=== PATIENT | female | born 1955 | race Caucasian/White ===

== ENCOUNTER → 2023-07-06 13:02 | Outpatient (REF) | payer MEDICARE, OTHER, SELFPAY | LOC: RAD 13:02 | PROVIDERS: ATTENDING PHYSICIAN Surgery Vascular Surgery | DX: I77.9 Disorder of arteries and arterioles, unspecified (principal) | CPT/HCPCS: 93922; 93925 ==

== ENCOUNTER 2023-12-13 22:52 | Inpatient (IN) | payer MEDICARE, OTHER, SELFPAY ==
[2023-12-13 19:33] VITALS: BMI 39.8
[2023-12-13 19:36] VITALS: BP 137/54
--- NOTE | 2023-12-13 19:42 | ED.GENMED ---
History of Present Illness
<Herminia Meléndez NP - Last Filed: 12/13/23 21:39>
General
Chief Complaint: Cough
Source: patient, ambulance crew and [facility]
Exam Limitations: none
Time Seen by Provider: 12/13/23 19:32
Nursing documentation reviewed up to this point in time: agreed with
History of Present Illness
History of Present Illness:
Patient to ED with complaint of fever, cough, SOB, low pulse ox. Temp of 102 reported by NH. Brought to ED via EMS for eval
Past History
<Herminia Mleéndez NP - Last Filed: 12/13/23 21:39>
Past History
ED Past Medical History: Asthma, GERD, HTN, Hypercholesterolemia, IDDM and Other (rhabdo, peripheral arterial disease, left heel osteomyelitis, pelvic abscess)
ED Past Surgical History: Other (Vascular)
Social History
Tobacco: Former smoker
Alcohol: None
Drug: None
Personal:
Living: [facility]
Employment: Disabled
Review of Systems
<Herminia Meléndez NP - Last Filed: 12/13/23 21:39>
Review of Systems
Allergies reviewed?: Yes
All Other Systems: ROS reviewed and negative except as documented in HPI and ROS
Constitutional: Reports fever and fatigue
EENT: Reports no symptoms
Respiratory: Reports cough and trouble breathing
Cardiac: Reports no symptoms
ABD/GI: Reports no symptoms
: Reports no symptoms
Musculoskeletal: Reports no symptoms
Skin: Reports no symptoms
Neurological: Reports weakness
Psychiatric: Reports no symptoms
Phy Exam
<Herminia Meléndez NP - Last Filed: 12/13/23 21:39>
General Physical Exam
General Presentation: moderate distress
General age: appears stated age
General Skin: warm and dry
General Habitus: normal
General Mental: alert
Cardiovascular Exam
Cardiovascular Exam: regular rate/rhythm
Pulmonary Exam
Pulmonary Exam: chest non tender and decreased breath sounds
Cough: coarse cough
Breath Sounds: Wheeze: generalized (expiratory)
Gastrointestinal Exam
Gastrointestinal Exam: normal bowel sounds, non tender, soft and no organomegaly
Musculoskeletal Exam
Musculoskeletal Exam: neuro vasc intact
Skin Exam
Skin Exam: normal color, warm/dry and no rash
Psychiatric Exam
Psychiatric Exam: normal mood/affect
Course
<Herminia Meléndez NP - Last Filed: 12/13/23 21:39>
Orders/Labs/Results
Orders:
Orders
12/13/23 19:33
Electrocardiogram (*1) Urgent
Reason for Study: Other
Other Reason for Exam: Possible Sepsis
Cardiac Monitoring- Treatment ONCE
EKG- Treatment ONCE
IV Insert/Care/Rem.- Treatment PRN
Straight cath- Treatment ONCE
CR Chest - 2 Views Urgent
Comment:
Reason For Exam: suspected infection
O2 Therapy [RESP] Urgent
Titrate/Wean O2 to maintain O2 sat greater than (%): 93
Special Instructions: TO MAINTAIN CONTINUOUS O2 SATS > OR = 93%
Pulse Ox/cont/shift [RESP] Urgent
Quantity: 1
Special Instructions: CONTINUOUS
12/13/23 19:51
Ipratropium/Albuterol Sulfate [Duoneb] 3 ml INH R NOW STA
12/13/23 20:01
Urinalysis Reflex To Culture Urgent
Date Specimen was Collected: 12/13/23
Time Specimen was Collected: 19:33
Urine Microscopic Reflex Cult Urgent
Urine Culture Urgent
JEANNETTE Source: U
Specimen Description:
Date Specimen was Collected: 12/13/23
Time Specimen was Collected: 19:33
Acetaminophen [Tylenol] 1,000 mg PO NOW STA
Dexamethasone Sod Phosphate [Decadron] 10 mg IV NOW STA
12/13/23 20:07
COVID-19 Antigen Urgent
Source: Nasal Swab
Complete Blood Count/With Diff Urgent
Comprehensive Metabolic Panel Urgent
Lactic Acid Q4H
Comment: ON ICE, CANCEL 2ND ORDER IF FIRST LACTIC ACID LEVEL <2
Blood Culture Urgent
JEANNETTE Source: Blood/Venous
Specimen Description:
12/13/23 21:35
Piperacillin/Tazo 3.375 Gram [Zosyn] 3.375 gram in 50 ml IV NOW
Abnormal Lab Results
12/13/23 12/13/23
20:01 20:07
WBC 15.4 H 10^3/uL
(4.8-10.8)
Hgb 11.2 L g/dL
(12.0-16.0)
Hct 34.0 L %
(37.0-47.0)
MCV 77.8 L fL
(81.0-99.0)
MCH 25.6 L pg
(27.0-31.0)
MCHC 32.9 L g/dL
(33.0-37.0)
RDW 15.1 H %
(11.5-14.5)
Abs Immat Gran (auto) 0.1 H 10^3/uL
(0-0.05)
Absolute Neuts (auto) 13.8 H 10^3/uL
(1.4-6.5)
Absolute Lymphs (auto) 0.7 L 10^3/uL
(1.2-3.4)
Immature Gran % 0.7 H %
(0-0.5)
Neutrophils % 89.8 H %
(42.2-75.2)
Lymphocytes % 4.7 L %
(20.5-51.1)
Carbon Dioxide 21 L mmol/L
(22-30)
BUN 25 H mg/dl
(7-17)
Creatinine 1.3 H mg/dL
(0.6-1.0)
Glucose 151 H mg/dl
(70-99)
Ur Occult Blood Reflex Trace A
(Negative)
Urine Nitrite (Reflex) Positive A
(Negative)
Leukocyte Esterase Rfl 2+ A
(Negative)
Urine RBC 3-6 A /HPF
(0-2)
Urine WBC (Reflex) 30-40 A /HPF
(0-5)
Urine Bacteria (Reflex) Many A
(Negative)
Urine Albumin (Reflex) 1+ A
(Neg - Trace)
12/13/23 20:07
12/13/23 20:07
Vital Signs
Initial and Last Documented VS:
Initial Vital Signs
Temp Pulse Resp Pulse Ox
100.2 F 109 26 95
12/13/23 19:33 12/13/23 19:33 12/13/23 19:33 12/13/23 19:33
Last Documented Vital Signs
Temp Pulse Resp BP Pulse Ox
103 F H 98 21 127/97 99
12/13/23 19:54 12/13/23 20:30 12/13/23 19:45 12/13/23 20:00 12/13/23 20:30
<Erwin Navas, DO - Last Filed: 12/13/23 21:36>
Orders/Labs/Results
Orders:
Orders
12/13/23 19:33
Electrocardiogram (*1) Urgent
Reason for Study: Other
Other Reason for Exam: Possible Sepsis
Cardiac Monitoring- Treatment ONCE
EKG- Treatment ONCE
IV Insert/Care/Rem.- Treatment PRN
Straight cath- Treatment ONCE
CR Chest - 2 Views Urgent
Comment:
Reason For Exam: suspected infection
O2 Therapy [RESP] Urgent
Titrate/Wean O2 to maintain O2 sat greater than (%): 93
Special Instructions: TO MAINTAIN CONTINUOUS O2 SATS > OR = 93%
Pulse Ox/cont/shift [RESP] Urgent
Quantity: 1
Special Instructions: CONTINUOUS
12/13/23 19:51
Ipratropium/Albuterol Sulfate [Duoneb] 3 ml INH R NOW STA
12/13/23 20:01
Urinalysis Reflex To Culture Urgent
Date Specimen was Collected: 12/13/23
Time Specimen was Collected: 19:33
Urine Microscopic Reflex Cult Urgent
Urine Culture Urgent
JEANNETTE Source: U
Specimen Description:
Date Specimen was Collected: 12/13/23
Time Specimen was Collected: 19:33
Acetaminophen [Tylenol] 1,000 mg PO NOW STA
Dexamethasone Sod Phosphate [Decadron] 10 mg IV NOW STA
12/13/23 20:07
COVID-19 Antigen Urgent
Source: Nasal Swab
Complete Blood Count/With Diff Urgent
Comprehensive Metabolic Panel Urgent
Lactic Acid Q4H
Comment: ON ICE, CANCEL 2ND ORDER IF FIRST LACTIC ACID LEVEL <2
Blood Culture Urgent
JEANNETTE Source: Blood/Venous
Specimen Description:
12/13/23 21:35
Piperacillin/Tazo 3.375 Gram [Zosyn] 3.375 gram in 50 ml IV NOW
Abnormal Lab Results
12/13/23 12/13/23
20:01 20:07
WBC 15.4 H 10^3/uL
(4.8-10.8)
Hgb 11.2 L g/dL
(12.0-16.0)
Hct 34.0 L %
(37.0-47.0)
MCV 77.8 L fL
(81.0-99.0)
MCH 25.6 L pg
(27.0-31.0)
MCHC 32.9 L g/dL
(33.0-37.0)
RDW 15.1 H %
(11.5-14.5)
Abs Immat Gran (auto) 0.1 H 10^3/uL
(0-0.05)
Absolute Neuts (auto) 13.8 H 10^3/uL
(1.4-6.5)
Absolute Lymphs (auto) 0.7 L 10^3/uL
(1.2-3.4)
Immature Gran % 0.7 H %
(0-0.5)
Neutrophils % 89.8 H %
(42.2-75.2)
Lymphocytes % 4.7 L %
(20.5-51.1)
Carbon Dioxide 21 L mmol/L
(22-30)
BUN 25 H mg/dl
(7-17)
Creatinine 1.3 H mg/dL
(0.6-1.0)
Glucose 151 H mg/dl
(70-99)
Ur Occult Blood Reflex Trace A
(Negative)
Urine Nitrite (Reflex) Positive A
(Negative)
Leukocyte Esterase Rfl 2+ A
(Negative)
Urine RBC 3-6 A /HPF
(0-2)
Urine WBC (Reflex) 30-40 A /HPF
(0-5)
Urine Bacteria (Reflex) Many A
(Negative)
Urine Albumin (Reflex) 1+ A
(Neg - Trace)
12/13/23 20:07
12/13/23 20:07
Vital Signs
Initial and Last Documented VS:
Initial Vital Signs
Temp Pulse Resp Pulse Ox
100.2 F 109 26 95
12/13/23 19:33 12/13/23 19:33 12/13/23 19:33 12/13/23 19:33
Last Documented Vital Signs
Temp Pulse Resp BP Pulse Ox
103 F H 98 21 127/97 99
12/13/23 19:54 12/13/23 20:30 12/13/23 19:45 12/13/23 20:00 12/13/23 20:30
<Herminia Meléndez NP - Last Filed: 12/13/23 21:39>
*Radiology
Radiology exam reviewed: radiology read reviewed
*Pulse Oximetry
Patient hypoxic: yes
*Critical Care Note
Total Time (30-74mins, 75-104mins- exclusive of procedures): Not Applicable
ED Attending Note
<Herminia Meléndez NP - Last Filed: 12/13/23 21:39>
-
Portions of this chart may have been created with voice recognition software.� Occasional wrong word or��sound alike� substitutions may have occurred due to the inherent limitations of voice recognition software.
<Erwin Navas DO - Last Filed: 12/13/23 21:36>
ED Attending Note
Patient seen and examined by attending physician: Yes
I performed the substantive portion of visit, reviewed & personally made and approve the management plan that is documented in note by myself or EMILY.: Yes
ED Attending Note:
Seen with [employer] examined independently cough fever looks like pneumonia and urinary tract infection plan will be antibiotics nebs fluids Tylenol admission
Discharge Plan
Departure
Patient Disposition: Admit
Date of Disposition: 12/13/23
Time of Disposition: 21:36
Presentation/result/management discussed w/ accepting MD/DO: Hospitalist
Patient with high blood pressure during this ER visit?: No
Condition: Fair
Covid-19: Not Applicable
Discharge Problem:
Pneumonia, Acute UTI
Prescriptions:
No Action
acetaminophen 325 MG tablet
650 mg PO Q4HPRN PRN (Reason: fever >101/ mild pain)
multivitamin with folic acid [Tab-A-Karrie] 1 TABLET tablet
1 tab PO HS
famotidine 20 MG tablet
20 mg PO DAILY
gabapentin 100 MG capsule
100 mg PO BID
atorvastatin 10 MG tablet
10 mg PO HS
melatonin 5 MG tablet
8 mg PO HS
gabapentin 100 MG capsule
200 mg PO HS
insulin lispro [Humalog KwikPen Insulin] 100 UNIT/ML insulin pen
10 units SC AC
Patient Comments:
hold if bs <110mg/dl
Rx Instructions:
HOLD BG <110
ezetimibe 10 MG tablet
10 mg PO HS
Saline Nasal 50 SPRAYS/45 ML aerosol,spray
2 spray NS BID
aspirin [Ecotrin Low Strength] 81 MG tablet,delayed release (DR/EC)
81 mg PO DAILY Qty: 30 0RF
fexofenadine 180 mg Tablet
180 mg PO DAILY
diphenhydramine HCl [Benadryl] 25 mg Capsule
50 mg PO DAILY
valsartan [Diovan] 40 mg Tablet
40 mg PO DAILY
Patient Comments:
not on medication list from [facility].
Artificial Tears (PF) Dropperette
2 drp OPHTHALMIC (EYE) Q8H
tramadol 50 mg Tablet
25 mg PO BID PRN (Reason: PAIN)
magnesium hydroxide 400 mg/5 mL Suspension
30 ml PO PRN PRN (Reason: No BM 3 days)
albuterol sulfate [ProAir HFA] 90 mcg/actuation Hfa Aerosol Inhaler
2 puff INHALATION DAILY
ipratropium bromide 21 mcg (0.03 %) [place],Non-Aerosol
1 spray INTRANASAL BID
acetaminophen [Tylenol] 325 mg Capsule
650 mg PO DAILY
polyethylene glycol 3350 17 GRAMS powder in packet
17 grams PO Q12 PRN (Reason: constipation)
ascorbic acid (vitamin C) 1,000 mg Tablet
1,000 mg PO DAILY
Aquaphor Ointment
1 applic TOPICAL BID
Rx Instructions:
For dry skin
Fleet Enema 19-7 gram/118 mL Enema
118 ml ME PRN PRN (Reason: if no results after bisacodyl)
Rx Instructions:
If no bowel movement in 24 hours after bisacodyl
epinephrine [EpiPen] 0.3 mg/0.3 mL Auto-Injector
0.3 mg IM Q5-15M PRN (Reason: allergic reaction)
diclofenac sodium 1 % Gel
4 g TOPICAL PRN PRN (Reason: pain)
glucagon 1 mg Kit
1 mg IM PRN PRN (Reason: BS <50)
ketoconazole 2 % Shampoo
1 applic TOPICAL ONCE
loperamide 2 mg Capsule
2 mg PO Q4H PRN (Reason: DIARRHEA)
cetirizine 10 mg Tablet
10 mg PO HS
famotidine 40 mg Tablet
40 mg PO HS
hydroxyzine HCl 50 mg Tablet
50 mg PO Q8H
hydrocortisone 1 % Cream
1 applic TOPICAL BID
esomeprazole magnesium [Nexium] 40 mg Capsule,Delayed Release(Dr/Ec)
40 mg PO DAILY
docusate sodium [Colace] 100 mg Capsule
100 mg PO BID PRN (Reason: constipation)
ammonium lactate 12 % Cream
1 applic TOPICAL HS
midodrine 2.5 mg Tablet
2.5 mg PO BID
Rx Instructions:
HOLD BP >110/60
albuterol sulfate [ProAir HFA] 90 mcg/actuation Hfa Aerosol Inhaler
2 puff INHALATION Q4H PRN (Reason: BRONCHOSPASM)
hydrocortisone 2.5 % Ointment
1 applic TOPICAL BID PRN (Reason: ALLERGIC CONTACT DERMATITIS)
glipizide 5 mg Tablet
5 mg PO 1300
nortriptyline 50 mg Capsule
50 mg PO HS
metoprolol tartrate 25 mg Tablet
12.5 mg PO BID
Rx Instructions:
HOLD SBP <110, HR <60
cranberry 450 mg Tablet
450 mg PO BID
Linzess 290 mcg Capsule
290 mcg PO DAILY
Xarelto 2.5 mg Tablet
2.5 mg PO QPM
brimonidine 0.33 % Gel With Pump
1 applic TOPICAL DAILY
insulin glargine [Lantus U-100 Insulin] 1,000 UNITS/10 ML solution
28 units SC HS
Patient Comments:
Took half dose 01/20
bisacodyl [OneLAX Bisacodyl] 10 MG suppository
10 mg ME DAILYPRN PRN (Reason: no MB 24hrs after MOM)
Rx Instructions:
after 24h no BM
Referrals:
Nora River CRNP [Family Provider] -
Interventions
Interventions:
*Risk Screen - Suicide Last Done: 12/13/23 19:33
*General Assessment Last Done: 12/13/23 19:33
*Neglect/Abuse Screening Last Done: 12/13/23 19:33
*ED COVID-19 Vaccine History Last Done: 12/13/23 19:33
ED- Pulmonary Assessment Last Done: 12/13/23 19:33
Discharge Date and Time
Print Language: URDU
[2023-12-13 20:00] VITALS: BP 127/97
[2023-12-13] MEDS: TYLENOL 1000 MG PO (20:13)
[2023-12-13] MEDS: DECADRON 10 MG IV (20:13)
[2023-12-13] MEDS: DUONEB 3 ML INH (20:14)
[2023-12-13 20:19] LABS: Urine Albumin 1+ (Neg - Trace); Urine Bilirubin Negative (Negative); Urine Character Slightly Cloudy (Clear); Urine Color Yellow; Urine Glucose Negative (Negative); Urine Ketone Negative (Negative); Urine Leukocyte 2+ (Negative); Urine Nitrite Positive (Negative); Urine Occult Blood Trace (Negative); Urine Specific Gravity 1.015 (<1.030); Urine Urobilinogen Negative (Neg - 1+)
[2023-12-13 20:20] LABS: % Basophils 0.4 % (0-2); % Eosinophils 0.6 % (0-6); % Immature Granulocytes 0.7 % (0-0.5); % Lymphocytes 4.7 % (20.5-51.1); % Monocytes 3.8 % (1.7-9.3); % Neutrophils 89.8 % (42.2-75.2); Absolute Basophils 0.1 10^3/uL (0-0.2); Absolute Eosinophils 0.1 10^3/uL (0-0.7); Absolute Immature Granulocytes 0.1 10^3/uL (0-0.05); Absolute Lymphocytes 0.7 10^3/uL (1.2-3.4); Absolute Monocytes 0.6 10^3/uL (0.1-0.6); Absolute Neutrophils 13.8 10^3/uL (1.4-6.5); Hemoglobin 11.2 g/dL (12.0-16.0); Mean Corp Hgb Conc. 32.9 g/dL (33.0-37.0); Mean Corpuscular Hgb 25.6 pg (27.0-31.0); Mean Corpuscular Volume 77.8 fL (81.0-99.0); Nucleated Red Blood Cells % 0 %; Red Blood Cell Count 4.37 10^6/uL (4.20-5.40); Red Cell Dist. Width 15.1 % (11.5-14.5); White Blood Cell Count 15.4 10^3/uL (4.8-10.8)
[2023-12-13 20:28] LABS: Urine Bacteria Many (Negative); Urine White Cell 30-40 /HPF (0-5)
[2023-12-13 20:29] LABS: Lactic Acid 1.2 mmol/L (0.7-2.0)
[2023-12-13 20:40] LABS: Platelet Count 240 10^3/uL (130-400)
[2023-12-13 20:46] LABS: ALT (SGPT) 14 U/L (0-35); AST (SGOT) 28 U/L (14-36); Albumin 3.8 g/dl (3.5-5.0); Alkaline Phosphatase 110 U/L (38-126); Blood Urea Nitrogen 25 mg/dl (7-17); Carbon Dioxide 21 mmol/L (22-30); Chloride 103 mmol/L (98-107); Estimated Creatinine Clearance 51 ml/min; Glucose 151 mg/dl (70-99); Potassium 4.1 mmol/L (3.5-5.1); Sodium 136 mmol/L (135-145); Total Bilirubin 0.8 mg/dl (0.2-1.3); Total Protein 7.2 g/dl (6.3-8.2); eGFR 45.07
[2023-12-13 20:48] LABS: COVID-19 Antigen Negative (Negative)
[2023-12-13 21:18] VITALS: BP 143/80
[2023-12-13 22:09] VITALS: BP 126/68
[2023-12-13] MEDS: ZOSYN 50 IV (22:09)
--- NOTE | 2023-12-13 22:16 | HPS.HSE ---
Addendum entered and electronically signed by Valeriy Robles MD 12/14/23 13:24:
Laboratory Tests
12/13/23 12/13/23
20:07 22:12
Creatinine 1.3 H
Estimated Creat Clear 51
Procalcitonin 0.92 H
Original Note:
Family Physician
-
Family Physician: PETE Gunn
Chief Complaint
-
[place] fever at [place]
History of Present Illness
HPI
68G [facility] [place], HX ESBL POS UTI, IDDM, diabetic neuropathy sent to ER for evaluation of spiked fever to 102.
Acute febrile episode with T 102 at [place]
- T max at ER 103
- mildly tachypneic but not labored breathing
- POx 95% on NRM
- POS productive cough
- BCx sent at ER
- initiated Zosyn, Decadron and Nebs
Medical History
Past Medical History
Past Medical History: Reports Other
Additional Past Medical History:
PAD status post left lower extremity bypass.
Chronic foot wound on the left heel with osteomyelitis.
Anticoagulation with Xarelto secondary to peripheral artery disease.
Insulin-requiring diabetes.
Diabetic neuropathy.
Essential hypertension.
HX ESBL UTI ( 08/14/20)
Indwelling Garcia catheter with chronic urinary retention.
Obesity with body mass index of 37.
HX f pelvic abscess.
Past Surgical History: Reports Other (PAD status post left lower extremity bypass.)
Social History
Tobacco: Former Smoker
Alcohol: None
Drug: None
Personal:
Living: Halfway
Employment: Disabled
Family History
Family History: Not pertinent
Allergies / Home Medications
Allergies reflects when Allergies were last updated in [employer].
Home Medications with original date entered in [employer]
Allergy/Medication List:
Allergies
Allergy/AdvReac Type Severity Reaction Status Date / Time
cheese Allergy per Nh Verified 03/15/23 16:05
Record
cinnamon Allergy Throat Verified 03/15/23 16:05
Swelling/per
Nh Record
latex Allergy Rash/per Verified 03/15/23 16:05
Nh Record
nickel Allergy Unknown Verified 03/15/23 16:05
peanut Allergy Throat Verified 03/15/23 16:05
Swelling/per
Nh Record
pineapple Allergy Throat Verified 03/15/23 16:05
Swelling/per
Nh Record
Rabbit Allergy headache Verified 03/17/23 08:51
shellfish derived Allergy Throat Verified 03/15/23 16:05
Swelling/per
Nh Record
spinach Allergy Throat Verified 03/15/23 16:05
Swelling/per
Nh Record
Home Medications
acetaminophen 325 mg tablet 650 mg PO Q4HPRN PRN fever >101/ mild pain 01/08/19
multivitamin with folic acid 400 mcg tablet (Tab-A-Karrie) 1 tab PO HS Supplement 01/08/19
famotidine 20 mg tablet 20 mg PO DAILY Gastrointestinal issue 01/14/20
gabapentin 100 mg capsule 100 mg PO BID Pain 01/30/20
atorvastatin 10 mg tablet 10 mg PO HS High cholesterol 02/22/20
melatonin 5 mg tablet 8 mg PO HS Sleep 03/02/20
ezetimibe 10 mg tablet 10 mg PO HS High cholesterol 08/10/20
gabapentin 100 mg capsule 200 mg PO HS Neurological Condition 08/10/20
insulin lispro 100 unit/mL subcutaneous pen (Humalog KwikPen (U-100) Insulin) 10 units SC AC Diabetes 08/10/20
sodium chloride 0.65 % nasal spray aerosol (Saline Nasal) 2 spray NS BID DRY NOSE 08/10/20
aspirin 81 mg tablet,delayed release (Ecotrin Low Strength) 81 mg PO DAILY ##30 08/19/20
acetaminophen 325 mg capsule (Tylenol) 650 mg PO DAILY Pain 01/20/22
albuterol sulfate 90 mcg/actuation aerosol inhaler (ProAir HFA) 2 puff inhalation DAILY Lung/breathing issues 01/20/22
dextran 70-hypromellose eye drops in a dropperette (Artificial Tears (PF) drops in a dropperette) 2 drp ophthalmic (eye) Q8H Eye condition 01/20/22
diphenhydramine HCl 25 mg capsule (Benadryl) 50 mg PO DAILY 01/20/22
fexofenadine 180 mg tablet 180 mg PO DAILY Allergies 01/20/22
ipratropium bromide 21 mcg (0.03 %) nasal spray 1 spray intranasal BID CONGESTION/WHEEZING 01/20/22
magnesium hydroxide 400 mg/5 mL oral suspension 30 ml PO PRN PRN No BM 3 days 01/20/22
polyethylene glycol 3350 17 gram oral powder packet 17 grams PO Q12 PRN constipation 01/20/22
tramadol 50 mg tablet 25 mg PO BID PRN PAIN 01/20/22
valsartan 40 mg tablet (Diovan) 40 mg PO DAILY Blood pressure 01/20/22
ascorbic acid (vitamin C) 1,000 mg tablet 1,000 mg PO DAILY Supplement 03/29/22
diclofenac sodium 1 % topical gel 4 g topical PRN PRN pain 03/29/22
epinephrine 0.3 mg/0.3 mL injection, auto-injector (EpiPen) 0.3 mg IM Q5-15M PRN allergic reaction 03/29/22
mineral oil-hydrophil petrolat topical ointment (Aquaphor topical ointment) 1 applic topical BID Supplement 03/29/22
sodium phosphates 19 gram-7 gram/118 mL enema (Fleet Enema) 118 ml GA PRN PRN if no results after bisacodyl 03/29/22
albuterol sulfate 90 mcg/actuation aerosol inhaler (ProAir HFA) 2 puff inhalation Q4H PRN BRONCHOSPASM 03/15/23
ammonium lactate 12 % topical cream 1 applic topical HS B/L LEGS 03/15/23
bisacodyl 10 mg rectal suppository (OneLAX Bisacodyl) 10 mg GA DAILYPRN PRN no MB 24hrs after MOM 03/15/23
brimonidine 0.33 % topical gel with pump 1 applic topical DAILY rosacea 03/15/23
cetirizine 10 mg tablet 10 mg PO HS 03/15/23
cranberry fruit 450 mg tablet (cranberry) 450 mg PO BID 03/15/23
docusate sodium 100 mg capsule (Colace) 100 mg PO BID PRN constipation 03/15/23
esomeprazole magnesium 40 mg capsule,delayed release (Nexium) 40 mg PO DAILY 03/15/23
famotidine 40 mg tablet 40 mg PO HS 03/15/23
glipizide 5 mg tablet 5 mg PO 1300 03/15/23
glucagon 1 mg injection kit 1 mg IM PRN PRN BS <50 03/15/23
hydrocortisone 1 % topical cream 1 applic topical BID B/L LEGS 03/15/23
hydrocortisone 2.5 % topical ointment 1 applic topical BID PRN ALLERGIC CONTACT DERMATITIS 03/15/23
hydroxyzine HCl 50 mg tablet 50 mg PO Q8H 03/15/23
insulin glargine 100 unit/mL subcutaneous solution (Lantus U-100 Insulin) 28 units SC HS 03/15/23
ketoconazole 2 % shampoo 1 applic topical ONCE ON SHOWER DAYS 03/15/23
linaclotide 290 mcg capsule (Linzess) 290 mcg PO DAILY 03/15/23
loperamide 2 mg capsule 2 mg PO Q4H PRN DIARRHEA 03/15/23
metoprolol tartrate 25 mg tablet 12.5 mg PO BID 03/15/23
midodrine 2.5 mg tablet 2.5 mg PO BID 03/15/23
nortriptyline 50 mg capsule 50 mg PO HS 03/15/23
rivaroxaban 2.5 mg tablet (Xarelto) 2.5 mg PO QPM 03/15/23
Review of Systems
-
Constitutional: Reports See HPI and Fever
EENT: Reports No Symptoms
Respiratory: Reports Cough
Cardiac: Reports No Symptoms
Abdomen/GI: Reports No Symptoms
: Reports No Symptoms
Musculoskeletal: Reports No Symptoms
Skin: Reports No Symptoms
Neurological: Reports No Symptoms
Endocrine: Reports No Symptoms
Hematologic/Lymphatic: Reports No Symptoms
Psych: Reports No Symptoms
Physical Exam
Vital Signs
Vital Signs
Temp Pulse Resp BP Pulse Ox
101.2 F H 92 25 126/68 94
12/13/23 22:13 12/13/23 22:09 12/13/23 22:09 12/13/23 22:09 12/13/23 22:14
Physical Exam
General: Well Developed (Morbidly obese ) and Other (sleepy but easily arousable )
HEENT: NormoCephalic, Anicteric, Moist mucous membranes, Oxygen and Other (flushed face )
Respiratory: Rales and Other
Cardiac: S1/S2 and Regular Rhythm
Breast: Deferred by me
GI: Soft, Non Tender, Non Distended and Normal Bowel Sounds
Genito-urinary: Deferred by me; No Garcia
Musculoskeletal: Edema, Left Lower Extremity, Edema, Right Lower Extremity and Other (no heel ulces )
Skin: Warm and Dry; No Rash
Neuro: Awake (easily arousable )
Psych: Calm
Laboratory Results
-
12/13/23 20:07
12/13/23 20:07
Laboratory Results
Lactic Acid 1.2 mmol/L (0.7-2.0) 12/13/23 20:07
Total Bilirubin 0.8 mg/dl (0.2-1.3) 12/13/23 20:07
AST 28 U/L (14-36) 12/13/23 20:07
ALT 14 U/L (0-35) 12/13/23 20:07
Alkaline Phosphatase 110 U/L (38-126) 12/13/23 20:07
Data Reviewed
-
Diagnostic Radiology: Report Reviewed by me
Lab Data: Labs Reviewed by me
Old Records: Reviewed
Impression/Plan
-
Reviewed VS: T max 103 HR 98 BP 127/97 RR 21 POx 99
Data
WCC 15.4
Hgb 11.2
BUN 25
Cr 1.3 - baseline 1,4
eGFR 45
nl LFts
LA 1.2
Pending PCT
UA
POS nitrites
WCC 30-40
NEG Covid
EKG:
NORMAL SINUS RHYTHM
T WAVE ABNORMALITY, CONSIDER ANTERIOR ISCHEMIA
ABNORMAL ECG
12/13/23 CXR my view : suspect LLL PNA
Last hospitalist admission: 08/10/20 -08/17/20
P Dxs:
1. Ileus in the settings of urinary tract infection as well as narcotic therapy.
2. Acute kidney injury
3. Hypokalemia
4. Complicated urinary tract infection with extended spectrum beta- lactamase Escherichia coli secondary to indwelling Garcia catheter.
5. Right upper extremity hematoma secondary to PICC line
6. Anemia of acute blood loss secondary to right upper extremity hematoma
ASSESSMENT & PLAN
Pending Rx reconciliation
Sepsis likely origins are PNA and UTI
Suspect PNA/ presumed CAP vs aspiration
Acute hypoxic RI need NRM support on arrival
- check PCT
- await final CXR report
- cont IV Zosyn for presumed now
- ID consult
Abnormal UA ( straight cath spec) suspect UTI but denied urinary symtoms
HX ESBL UTI ( 08/14/20) only sen to Ertapenem , Meropenem
HX POS MRSA screen (03/31/22)
HX CAUTI
- await UCx
- ID consult
IDDM2 w Hyperglycemia
Diabetic peripheral Neuropathy
- cont WEB APPLICATIONS DEVELOPER insulin regime
- add ISS low
Benign HTN
- cont all OP Meds
HX CKD 3a - stable
HLD
Chronic conditions
HX XR with possible bone erosion.
Atherosclerosis
Chr annemia
Asthma
Depression
Ut-iihheg-Jatm 6 months ago
DVT Px: LMWH
Code: full code
[2023-12-13 22:54] LABS: Procalcitonin 0.92 ng/ml (0.0-0.25)
[2023-12-13 23:00] VITALS: BP 135/58
[2023-12-13 23:51] VITALS: BP 133/75
[2023-12-14] VITALS (8 sets, daily range): BP systolic 112–162; BP diastolic 50–82; BMI 38.9
--- NOTE | 2023-12-14 01:00 | PTCARENOTE ---
no delay received. aaox1. pt aggresive at times. nsr. vss. nss @60cc/hr. call barakat in reach. will monitor.
[2023-12-14] MEDS: NSS 1000 IV ×2 (01:57→20:58)
[2023-12-14] MEDS: ZOSYN 50 IV ×4 (04:55→21:01)
[2023-12-14 06:07] LABS: Lactic Acid 1.1 mmol/L (0.7-2.0)
[2023-12-14 06:22] LABS: % Basophils 0.3 % (0-2); % Immature Granulocytes 0.7 % (0-0.5); % Monocytes 1.7 % (1.7-9.3); % Neutrophils 94.3 % (42.2-75.2); Absolute Immature Granulocytes 0.1 10^3/uL (0-0.05); Absolute Lymphocytes 0.3 10^3/uL (1.2-3.4); Absolute Monocytes 0.2 10^3/uL (0.1-0.6); Absolute Neutrophils 10.8 10^3/uL (1.4-6.5); Hematocrit 33.9 % (37.0-47.0); Hemoglobin 11.2 g/dL (12.0-16.0); Mean Corpuscular Hgb 25.9 pg (27.0-31.0); Mean Corpuscular Volume 78.3 fL (81.0-99.0); Mean Platelet Volume 9.3 fL (7.4-10.4); Nucleated Red Blood Cells % 0 %; Platelet Count 212 10^3/uL (130-400); Red Blood Cell Count 4.33 10^6/uL (4.20-5.40); White Blood Cell Count 11.5 10^3/uL (4.8-10.8)
[2023-12-14 06:50] LABS: ALT (SGPT) 11 U/L (0-35); AST (SGOT) 18 U/L (14-36); Albumin 3.1 g/dl (3.5-5.0); Alkaline Phosphatase 96 U/L (38-126); Blood Urea Nitrogen 30 mg/dl (7-17); Calcium 8.3 mg/dl (8.4-10.2); Carbon Dioxide 21 mmol/L (22-30); Chloride 104 mmol/L (98-107); Estimated Creatinine Clearance 46 ml/min; Glucose 284 mg/dl (70-99); Potassium 3.8 mmol/L (3.5-5.1); Sodium 138 mmol/L (135-145); Total Bilirubin 0.6 mg/dl (0.2-1.3); Total Protein 6.1 g/dl (6.3-8.2); eGFR 41.24
[2023-12-14] MEDS: ProAIR HFA INHALER 2 PUFF INH ×2 (07:29→22:13)
--- NOTE | 2023-12-14 07:54 | PHA.VAN.IN ---
Assessment
- Assessment
Renal Function: Unknown baseline (possibly similar to baseline)
Concomitant Antimicrobials: piperacillin/tazobactam
Plan
- Plan
Initial / Loading Dose: 2000mg - administration pending
Maintenance Regimen: dosing by level
Monitoring: random 12/14 599
Pharmacokinetics Vancomycin I
- -
Patient Age: 68
Patient Sex: Female
Vancomycin Day #: 1
Indication: Pulmonary/Respiratory
Requesting Provider: Dr. Raymundo
Pertinent Antimicrobial Allergies:
no pertinent antibiotic allergies
Height / Weight:
Height 5 ft 4 in
Actual Weight 102.829 kg
Pertinent Past Medical History: BMI ~39, DM, CKD
- Vital Signs / Lab Results
Temp Pulse Resp BP Pulse Ox
97.5 F 80 16 112/68 100
12/14/23 03:44 12/14/23 07:33 12/14/23 07:33 12/14/23 03:44 12/14/23 07:33
Lab Results - Hematology
12/13/23 12/14/23
20:07 05:43
WBC 15.4 H 11.5 H
Lab Results - Chemistry
12/13/23 12/14/23
20:07 05:43
BUN 25 H 30 H
Creatinine 1.3 H 1.4 H
Estimated Creat Clear 51 46
Albumin 3.8 3.1 L
12/13/23 12/13/23 12/14/23
19:45 20:07 00:49
Lactic Acid Cancelled 1.2 Cancelled
12/14/23 12/14/23 12/14/23
05:43 08:49 12:49
Lactic Acid 1.1 Cancelled Cancelled
Lab Results - Urine
12/13/23
20:01
Urine Nitrite (Reflex) Positive A
Leukocyte Esterase Rfl 2+ A
Urine WBC (Reflex) 30-40 A
Urine Bacteria (Reflex) Many A
[2023-12-14 07:56] LABS: Glucose - Point of Care 308 mg/dl (70-99)
[2023-12-14] MEDS: NOVOLOG FLEXPEN 10 UNITS SC ×3 (08:24→17:21)
[2023-12-14] MEDS: NOVOLOG FLEXPEN-LOW RESISTANCE 4 UNITS SC (08:24)
[2023-12-14] MEDS: NEURONTIN 100 MG PO ×2 (08:25→20:58)
[2023-12-14] MEDS: LINZESS 290 MCG PO (08:25)
[2023-12-14] MEDS: REFRESH EYE DROPS (PF) 2 DROPS BOTH EYES ×3 (08:25→20:59)
[2023-12-14] MEDS: LOPRESSOR 12.5 MG PO ×2 (08:25→20:58)
[2023-12-14] MEDS: ASPIR LOW (ENTERIC COATED) 81 MG PO (08:25)
[2023-12-14] MEDS: ProAmatine 2.5 MG PO ×2 (08:26→17:21)
[2023-12-14] MEDS: VANCOCIN 540 MG IV (08:26)
[2023-12-14] MEDS: DIOVAN 40 MG PO (08:26)
[2023-12-14] MEDS: PROTONIX 40 MG PO (08:26)
--- NOTE | 2023-12-14 10:14 | CON.ID ---
Consultation
-
Date/Time Consultation Requested: 12/14/23 00:49
Date/Time Consultation Performed: 12/14/23 10:14
Requesting Provider: Dr Robles
Performing Provider: Dr Anderson
Reason for Consultation: sepsis, PNA, abn UA, HX ESBL E Coli CAUTI, POS MRSA screen
Chief Complaint / Past History
Chief Complaint
fever
History of Present Illness
Ms Montano is a 68 year old female with history of chronic urinary retention, DM2. She is presenting from a nursing facility - [facility]. Reports fevers, no chills, cough - productive. No nausea, vomiting. She reports chronic loose stools in
the setting of IBS and multiple cathartics, mild suprapubic tenderness and dysuria. No change in her chronic lower back pain. No CVA tenderness.
A remote history of L heel wound with previous diagnosis of osteomyelitis is noted, also PAD s/p bypass.
Note history of ESBL E coli is quite remote - 3 years ago.
MRSA colonization also remove - 2 years ago.
Since arrival here she has been febrile to Tmax of 103 rectally, BP stable, saturating 98-100 percent on 4L, WBC on arrival 15 now 11.5, hgb 11.2, plt 212, L shift is noted and persisted today, eos were present on arrival now no longer present, cr
baseline 1.3 and today it is 1.4. T bili 0.6, ast 18, alt 11, alk phos 96, a1c pending, urine 30-40 wbc/hpf and many bacteria, covid ag neg, CXR: read as moderate left lower lobe pneumonia.
Past History
Additional Past Medical History:
PAD
Chronic foot wound on the left heel with osteomyelitis.
Anticoagulation with Xarelto secondary to peripheral artery disease.
Insulin-requiring diabetes.
Diabetic neuropathy.
Essential hypertension.
Remote HX ESBL UTI ( 08/14/20)
Indwelling Garcia catheter with chronic urinary retention.
Obesity - class two
Hx of pelvic abscess.
Additional Past Surgical History:
PAD status post left lower extremity bypass
Allergy History:
cheese Allergy (Verified 03/15/23 16:05)
per [facility] Record
cinnamon Allergy (Verified 03/15/23 16:05)
Throat Swelling/per [facility] Record
latex Allergy (Verified 03/15/23 16:05)
Rash/per [facility] Record
nickel Allergy (Verified 03/15/23 16:05)
Unknown
peanut Allergy (Verified 03/15/23 16:05)
Throat Swelling/per [facility] Record
pineapple Allergy (Verified 03/15/23 16:05)
Throat Swelling/per [facility] Record
Rabbit Allergy (Verified 03/17/23 08:51)
headache
shellfish derived Allergy (Verified 03/15/23 16:05)
Throat Swelling/per [facility] Record
spinach Allergy (Verified 03/15/23 16:05)
Throat Swelling/per [facility] Record
Medications Reviewed: Yes
Social History
Tobacco: Former Smoker
Alcohol: None
Drug: None
Family History
Family History: Not Pertinent
Review of Systems
Review of Systems
General: Fever
All systems: All other systems were reviewed and were negative
Vital Signs
Temp Pulse Resp BP Pulse Ox
97.5 F 80 18 153/66 98
12/14/23 03:44 12/14/23 07:35 12/14/23 07:35 12/14/23 08:26 12/14/23 07:35
Physical Exam
Physical Exam
Constitutional: No Acute Distress and Obese
Cardiovascular: Regular Rate and S1/S2; Negative Murmur or Rub
Pulmonary: Symmetric and Coarse (productive sounding cough); Negative Wheezes, Rales or Rhonchi
Gastrointestinal: Soft, Non Tender, Non Distended and Normal Bowel Sounds
Skin: Warm and Dry; Negative Rash or Jaundice
Lab / Diagnostic Study Results
12/14/23 05:43
12/14/23 05:43
Abs Immat Gran (auto) 0.1 10^3/uL (0-0.05) H 12/14/23 05:43
Absolute Neuts (auto) 10.8 10^3/uL (1.4-6.5) H 12/14/23 05:43
Absolute Lymphs (auto) 0.3 10^3/uL (1.2-3.4) L 12/14/23 05:43
Absolute Monos (auto) 0.2 10^3/uL (0.1-0.6) 12/14/23 05:43
Absolute Basos (auto) 0.0 10^3/uL (0-0.2) 12/14/23 05:43
Immature Gran % 0.7 % (0-0.5) H 12/14/23 05:43
Neutrophils % 94.3 % (42.2-75.2) H 12/14/23 05:43
Lymphocytes % 3.0 % (20.5-51.1) L 12/14/23 05:43
Monocytes % 1.7 % (1.7-9.3) 12/14/23 05:43
Eosinophils % 0.0 % (0-6) 12/14/23 05:43
Basophils % 0.3 % (0-2) 12/14/23 05:43
Lactic Acid Cancelled 12/14/23 12:49
Procalcitonin 0.92 ng/ml (0.0-0.25) H 12/13/23 22:12
Microbiology Results
Micro:
12/13/23 20:01 Urine Culture - Pending
Urine
12/13/23 20:07 Blood Culture - Pending
Blood/Venous
Assessment / Plan
Pneumonia
Possible UTI
CKD
Latex allergy - reported
- recommend obtaining Ts via a consistent route, suggest oral, which will make a meaningful T curve. Using a variety of routes makes trending clinical response quite difficult.
- note elevated procalcitonin in the setting of renal dysfunction - not an interpretable test
- mrsa PCR screen in progress, if negative may consider stopping vancomycin. Note previous colonization in 2021 - remote
- h/o ESBL E coli colonization most recently 2020, h/o pseudomonas 2019
- presenting from a health care facility
- contact precautions for the ESBL
- sputum culture if able to obtain one
- acapella
- a blood cultures has been sent, given critical national shortage, nonsevere pneumonia, do not recommend further blood cultures at this time
- continue vancomycin at this time
- agree with zosyn at this time - deescalate as able
- add levofloxacin
- s/p dexamethasone 10 mg IV once in the ER, not continued
- follow clinically
--- NOTE | 2023-12-14 10:47 | W.PN.HOSP.TC ---
Addendum entered and electronically signed by Wolf Raymundo MD 12/14/23 13:24:
evaluated by speech, VSE ordered for tomorrow
Original Note:
Today's Communication/Plan
-
Monitor vital signs and see plan
Follow fever curve
Continue with antibiotics
Follow cultures
Add Mucinex, Tessalon Perles
Add incentive spirometer
Bladder scan
speech
Assessment / Plan
Assessment / Plan
General: Well Developed (Morbidly obese )
HEENT: NormoCephalic, Anicteric, Moist mucous membranes, Oxygen
Respiratory: Rales and Other
Cardiac: S1/S2 and Regular Rhythm
GI: Soft, Non Tender, Non Distended and Normal Bowel Sounds
Genito-urinary: No Garcia
Musculoskeletal: Edema, Left Lower Extremity, Edema, Right Lower Extremity
Neuro: Awake,alert
Psych: Calm
Sepsis likely 2/2 PNA and UTI
Suspect PNA/ presumed CAP vs aspiration
Acute hypoxic RI need NRM support on arrival
Add Mucinex, Tessalon Perles
Chest x-ray with moderate left lower lobe pneumonia, probable right lower lobe atelectasis
Continue with Vanco and Zosyn
ID following
Blood culture pending
consult speech
Abnormal UA ( straight cath spec) suspect UTI
HX ESBL UTI ( 08/14/20) only sen to Ertapenem , Meropenem
HX CAUTI
- await UCx
ID following
IDDM2 w Hyperglycemia
Diabetic peripheral Neuropathy
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
Sliding scale, Accu-Chek
A1c 7.7
Benign HTN
- cont all OP Meds
History of orthostasis, also on midodrine. Hold parameters on midodrine
hx of PAD
on xarelto for that
HX CKD 3a - stable
HLD
Chronic conditions
HX XR with possible bone erosion.
Atherosclerosis
Chr anemia
Asthma
Depression
Ov-ekvcji-Mips 6 months ago
DVT Px: xarelto
Code: full code
I spent a total of 52 minutes with the patient or on the floor. More than 50% of this time involved counseling and coordination of care.
Anticipated Discharge: > 48 hours
Subjective/Interval History
-
Date of Service: December 14, 2023
denies nausea
Objective Data
-
Labs:
Laboratory Results
12/14/23
05:43
WBC 11.5 H
Hgb 11.2 L
Hct 33.9 L
Plt Count 212
Sodium 138
Potassium 3.8
Chloride 104
Carbon Dioxide 21 L
BUN 30 H
Creatinine 1.4 H
Glucose 284 H
Calcium 8.3 L
Total Bilirubin 0.6
AST 18
ALT 11
Alkaline Phosphatase 96
Vital Signs:
Vital Signs
Temp Pulse Resp BP Pulse Ox
97.5 F 80 18 153/66 98
12/14/23 03:44 12/14/23 07:35 12/14/23 07:35 12/14/23 08:26 12/14/23 07:35
I&O
12/13/23 12/14/23 12/15/23
06:59 06:59 06:59
Intake Total 360 / 360
Output Total 400 / 400
Balance -40 / -40
[2023-12-14 10:50] LABS: Glycohemoglobin (HgbA1c) 7.7 % (4.0-5.6)
[2023-12-14] MEDS: TESSALON PERLES 200 MG PO (11:33)
[2023-12-14] MEDS: MUCINEX 1200 MG PO ×2 (11:33→20:58)
[2023-12-14] MEDS: LEVAQUIN 750 MG PO (11:33)
[2023-12-14 12:32] LABS: Glucose - Point of Care 263 mg/dl (70-99)
[2023-12-14] MEDS: NOVOLOG FLEXPEN-LOW RESISTANCE 3 UNITS SC (13:06)
--- NOTE | 2023-12-14 13:21 | PTOTSP ---
SPEECH THERAPY SWALLOW EVALUATION:
Patient exhibits clinical signs of oropharyngeal dysphagia, likely acutely related to sepsis/pneumonia/UTI. Patient with history of oropharyngeal dysphagia per Case Management report. Currently admitted with lower lobe pneumonia and elevated WBC.
Patient remains at risk for aspiration and related complications given confusion, limited mobility, and current pulmonary status (pneumonia). Recommend Videofluoroscopic Swallowing Study to further assess swallow function at this time. Patient
appears safe to continue Regular texture diet and thin liquids with aspiration precautions in place until VSE. Recommend medications whole with liquid as tolerated. Aspiration precautions including: Upright positioning; Small single sips/bites; Slow
rate of intake; Supervision with meals and assistance as required; Oral care 3x/day; Remain upright 30 minutes after eating/drinking; Only eat when awake/alert; D/c oral diet if any signs of aspiration or decline in mental or respiratory status.
Speech therapy to follow with additional recommendations following VSE results.
RECOMMEND:
1) Videofluoroscopic Swallowing Study
2) Regular texture diet and thin liquids
3) medications whole with liquid as tolerated
4) Aspiration precautions including: Upright positioning; Small single sips/bites; Slow rate of intake; Supervision with meals and assistance as required; Oral care 3x/day; Remain upright 30 minutes after eating/drinking; Only eat when awake/alert;
D/c oral diet if any signs of aspiration or decline in mental or respiratory status
5) ST to follow
--- NOTE | 2023-12-14 13:36 | CM ---
Reviewed the chart notes and spoke with the patient at the bedside. CM spoke with Joy [employer] television director. Patient resides as a fdc resident of [facility]. She has a bed hold in place. The patient is wheelchair bound. [facility]
continues to be available to patient/family and is monitoring medical plan for needs at discharge.
Plan: Discharge back to [facility] when medically stable. No precert is required.
[2023-12-14 17:12] LABS: Glucose - Point of Care 104 mg/dl (70-99)
--- NOTE | 2023-12-14 17:19 | PTOTSP ---
Pt is able to transfer with minimal assistance.She is nonambulatory at baseline. No rehab goals were identified. Nursing staff is able to assist her with safe transfers as needed. Pt to return to [facility] (where she is a permanent resident)
when medically stable. PT will sign off.
[2023-12-14] MEDS: NOVOLOG FLEXPEN-LOW RESISTANCE SC (17:20)
[2023-12-14] MEDS: XARELTO 2.5 MG PO (17:21)
[2023-12-14] MEDS: ZETIA 10 MG PO (20:59)
[2023-12-14] MEDS: LIPITOR 10 MG PO (21:00)
[2023-12-14] MEDS: PAMELOR 50 MG PO (21:00)
[2023-12-14] MEDS: PEPCID 20 MG PO (21:00)
[2023-12-14] MEDS: NEURONTIN 200 MG PO (21:00)
[2023-12-14 21:01] LABS: Glucose - Point of Care 166 mg/dl (70-99)
[2023-12-14] MEDS: LANTUS 0.28 UNITS SC (21:01)
[2023-12-14] MEDS: TYLENOL 650 MG PO (21:29)
[2023-12-15 03:28] VITALS: BP 134/62
[2023-12-15] MEDS: ZOSYN 50 IV ×3 (03:30→15:25)
[2023-12-15 03:51] LABS: Glucose - Point of Care 172 mg/dl (70-99)
[2023-12-15 04:12] VITALS: BMI 38.8
[2023-12-15 06:00] VITALS: BMI 39.9
[2023-12-15 06:31] LABS: % Basophils 0.4 % (0-2); % Eosinophils 1.1 % (0-6); % Immature Granulocytes 0.5 % (0-0.5); % Lymphocytes 9.2 % (20.5-51.1); % Monocytes 5.4 % (1.7-9.3); % Neutrophils 83.4 % (42.2-75.2); Absolute Eosinophils 0.1 10^3/uL (0-0.7); Absolute Immature Granulocytes 0.1 10^3/uL (0-0.05); Absolute Monocytes 0.6 10^3/uL (0.1-0.6); Absolute Neutrophils 9.5 10^3/uL (1.4-6.5); Hematocrit 32.1 % (37.0-47.0); Hemoglobin 10.6 g/dL (12.0-16.0); Mean Corpuscular Hgb 26.4 pg (27.0-31.0); Mean Corpuscular Volume 79.9 fL (81.0-99.0); Mean Platelet Volume 9.8 fL (7.4-10.4); Nucleated Red Blood Cells % 0 %; Platelet Count 265 10^3/uL (130-400); Red Blood Cell Count 4.02 10^6/uL (4.20-5.40); Red Cell Dist. Width 15.1 % (11.5-14.5); White Blood Cell Count 11.4 10^3/uL (4.8-10.8)
[2023-12-15 06:54] LABS: Blood Urea Nitrogen 40 mg/dl (7-17); Calcium 8.6 mg/dl (8.4-10.2); Carbon Dioxide 20 mmol/L (22-30); Chloride 110 mmol/L (98-107); Estimated Creatinine Clearance 43 ml/min; Glucose 171 mg/dl (70-99); Potassium 3.3 mmol/L (3.5-5.1); Sodium 140 mmol/L (135-145); eGFR 37.96
[2023-12-15 07:48] VITALS: BP 138/63
[2023-12-15 07:48] LABS: Glucose - Point of Care 170 mg/dl (70-99)
[2023-12-15] MEDS: ProAIR HFA INHALER 2 PUFF INH (07:58)
--- NOTE | 2023-12-15 08:04 | PHA.VAN.FU ---
Vancomycin Assessment / Plan
- Assessment
Renal Function: SCR Increasing (slight increasing trend SCR 1.3-->1.4-->1.5, BUN 25-->30-->40)
WBC's are: WNL
In the past 24 hrs, patient has been: Afebrile
Concomitant Antimicrobials: piperacillin/tazobactam, levofloxacin
- Assessment - Therapeutic Drug Monitoring
Random Level: 11 - drawn ~21.5H after 2g loading dose
- Dosing Plan
Dosing by Level: Re-dose today (Vanc 1000mg)
- Monitoring Plan
Random Level: 12/15 0600
- Follow Up
Pharmacy will continue to follow.
Vancomycin Follow UP
- -
Patient Age: 68
Patient Sex: Female
Vancomycin Day #: 2
Indication: Pulmonary/Respiratory
Requesting Provider: Dr. Raymundo / Justin
Pertinent Antimicrobial Allergies:
no pertinent antibiotic allergies
Height / Weight:
Height 5 ft 4 in
Actual Weight 105.318 kg
Pertinent Past Medical History: BMI ~39, DM, CKD
- Vital Signs / Lab Results
Temp Pulse Resp BP Pulse Ox
97.8 F 78 16 138/63 98
12/15/23 07:48 12/15/23 08:00 12/15/23 08:00 12/15/23 07:48 12/15/23 07:48
Lab Results - Hematology
12/13/23 12/14/23 12/15/23
20:07 05:43 06:14
WBC 15.4 H 11.5 H 11.4 H
Lab Results - Chemistry
12/13/23 12/14/23 12/15/23
20:07 05:43 06:14
BUN 25 H 30 H 40 H
Creatinine 1.3 H 1.4 H 1.5 H
Estimated Creat Clear 51 46 43
Albumin 3.8 3.1 L
12/13/23 12/13/23 12/14/23
19:45 20:07 00:49
Lactic Acid Cancelled 1.2 Cancelled
12/14/23 12/14/23 12/14/23
05:43 08:49 12:49
Lactic Acid 1.1 Cancelled Cancelled
Lab Results - Urine
12/13/23
20:01
Urine Nitrite (Reflex) Positive A
Leukocyte Esterase Rfl 2+ A
Microbiology Results
12/13/23 20:01 Urine Culture - Preliminary
Urine Escherichia coli
12/13/23 20:07 Blood Culture - Preliminary
Blood/Venous Positive culture in progress
Gram Stain - Preliminary
Therapeutic Drug Monitoring
Random Vancomycin 11.0 ug/ml 12/15/23 06:14
[2023-12-15] MEDS: LOPRESSOR 12.5 MG PO ×2 (08:35→20:17)
[2023-12-15] MEDS: ProAmatine PO ×2 (08:35→17:33)
[2023-12-15] MEDS: LINZESS 290 MCG PO (08:35)
[2023-12-15] MEDS: PROTONIX 40 MG PO (08:35)
[2023-12-15] MEDS: DIOVAN 40 MG PO (08:36)
[2023-12-15] MEDS: NEURONTIN 100 MG PO ×2 (08:36→20:17)
[2023-12-15] MEDS: MUCINEX 1200 MG PO ×2 (08:36→20:17)
[2023-12-15] MEDS: ASPIR LOW (ENTERIC COATED) 81 MG PO (08:36)
[2023-12-15] MEDS: REFRESH EYE DROPS (PF) 2 DROPS BOTH EYES ×3 (08:36→21:35)
--- NOTE | 2023-12-15 09:34 | W.PN.HOSP.TC ---
Today's Communication/Plan
-
see plan
Assessment / Plan
Assessment / Plan
Sepsis likely 2/2 PNA and UTI
Suspect PNA/ presumed CAP vs aspiration
Acute hypoxic Resp Insufficiency
Add Mucinex, Tessalon Perles
-Chest x-ray with moderate left lower lobe pneumonia, probable right lower lobe atelectasis
-Continue with Vanco and Zosyn and Levaquin
-blood culture with coag neg staph
-F/U MRSA Swab
-ID consult appreciated
-s/p VSE this morning -- regular/thins
Abnormal UA ( straight cath spec) suspect UTI
HX ESBL UTI ( 08/14/20)
HX CAUTI
-final culture E. Coli resistant to fluoroquinolones
-continue IV Zosyn as above
-appreciate ID
IDDM2 w Hyperglycemia
Diabetic peripheral Neuropathy
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
Sliding scale, Accu-Chek
A1c 7.7
Benign HTN
- cont all OP Meds
History of orthostasis, also on midodrine. Hold parameters on midodrine
hx of PAD
on xarelto for that
HX CKD 3a - stable
HLD
Chronic conditions
HX XR with possible bone erosion.
Atherosclerosis
Chr anemia
Asthma
Depression
Mo-ymbxze-Chmn 6 months ago
Non-Ambulatory at baseline
DVT Px: xarelto
Code: full code
I spent a total of 52 minutes with the patient or on the floor. More than 50% of this time involved counseling and coordination of care.
Anticipated Discharge: 24 - 48 hours
Subjective/Interval History
-
Date of Service: December 15, 2023
feels mildly short of breath
wants to go home
Objective Data
-
Labs:
Laboratory Results
12/15/23
06:14
WBC 11.4 H
Hgb 10.6 L
Hct 32.1 L
Plt Count 265 D
Sodium 140
Potassium 3.3 L
Chloride 110 H
Carbon Dioxide 20 L
BUN 40 H
Creatinine 1.5 H
Glucose 171 H
Calcium 8.6
Vital Signs:
Vital Signs
Temp Pulse Resp BP Pulse Ox
97.8 F 78 16 138/63 98
12/15/23 07:48 12/15/23 08:36 12/15/23 08:00 12/15/23 08:36 12/15/23 07:48
I&O
12/14/23 12/15/23 12/16/23
06:59 06:59 06:59
Intake Total 360 / 360 3070 / 3070
Output Total 400 / 400
Balance -40 / -40 3070 / 3070
Review of Systems
-
History Source: Patient
All other systems: Reviewed and negative
Physical Exam
-
General: No Apparent Distress
Respiratory: Negative Wheezes
Cardiac: Regular Rhythm and S1/S2
GI: Soft and Nontender
Musculoskeletal: No Edema
Skin: Warm and Dry; Negative Rash
Neuro: AO x 3
Psych: Calm
Data Reviewed
-
Diagnostic Radiology: Report Reviewed by me
Labs: Labs Reviewed by me
--- NOTE | 2023-12-15 09:49 | PTOTSP ---
Video Swallow Examination
Oral/pharyngeal swallow deemed within functional limits. Swallow onset at level of vallecula across trials. Complete tongue base retraction, epiglottic inversion, anterior hyoid movement and laryngeal vestibular closure. No laryngeal penetration,
aspiration or significant pharyngeal stasis. Intermittent cricopharyngeal prominence vs impingement from cervical osteophytes with thin liquid trials that did not obstruct flow.
Recommend
Continue Regular solids and thin liquids
Intersperse sip of liquid after every 2-3 bites of solid
Meds with liquid as tolerated.
Reflux precautions.
No further skilled ST indicated at this time.
[2023-12-15] MEDS: NOVOLOG FLEXPEN 10 UNITS SC ×3 (10:16→17:31)
[2023-12-15] MEDS: NOVOLOG FLEXPEN-LOW RESISTANCE 1 UNITS SC (10:16)
[2023-12-15] MEDS: TESSALON PERLES 200 MG PO ×3 (10:18→23:07)
[2023-12-15 11:07] VITALS: BP 119/68
--- NOTE | 2023-12-15 11:37 | CM ---
Addendum entered by Radha Ferguson RN 12/15/23 15:52:
IMM reviewed and placed on chart.
Original Note:
Reviewed the chart notes. 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 CM continues to be available to patient/family and is monitoring medical plan for needs at discharge.
Plan: Discharge back to [facility] when medically stable.
[2023-12-15 12:05] LABS: Glucose - Point of Care 237 mg/dl (70-99)
--- NOTE | 2023-12-15 12:10 | VATNOTE ---
Unsuccessful x2 attempts to place new PIV. Other VAT RN to attempt.
[2023-12-15] MEDS: KCL 20 MEQ PO (13:07)
[2023-12-15] MEDS: NOVOLOG FLEXPEN-LOW RESISTANCE 2 UNITS SC (13:08)
[2023-12-15] MEDS: VANCOCIN 200 IV (13:09)
--- NOTE | 2023-12-15 15:13 | W.PN.ID1 ---
Date of Service
Date of Service: December 15, 2023
Today's Communication
See below.
Assessment / Plan
LLL Pneumonia
- sputum culture if able to obtain one
- acapella
-MRSA screen +
-continue vancomycin (d3) and levofloxacin (d2)
-At time of discharge , transition to doxycycline 100mg po bid and levofloxacin 750mg po q48 through 12/20/23
Symptomatic UTI.
-Ucx E. coli
- Transition Zosyn to cefuroxime 500mg po bid through 12/20/23.
CoNS bacteremia x1 of 1 set - contaminant
Sepsis
-Leukocytosis improving
-Fever resolved
CKD
Hx of ESBL
SNF resident
- continue contact isolation
Chief Complaint
-: Pneumonia and UTI
Subjective / Review of Systems
Cough is better.
Dysuria resolved today.
Vital Signs / Physical Exam
Vital Signs
Vital Signs
Temp Pulse Resp BP Pulse Ox
97.4 F 75 18 119/68 100
12/15/23 11:07 12/15/23 11:07 12/15/23 11:07 12/15/23 11:07 12/15/23 11:07
Physical Exam
Constitutional: No Acute Distress
Pulmonary: Rales (left base)
Gastrointestinal: Soft, Non Tender and Non Distended
Genito-Urinary: Negative CVA Tenderness
Extremities: Negative Edema
Neurological: AO x 3
Objective Data
Lab Data
Lab Results
12/15/23 06:14
12/15/23 06:14
Estimated Creat Clear 43 ml/min 12/15/23 06:14
Lactic Acid Cancelled 12/14/23 12:49
Total Bilirubin 0.6 mg/dl (0.2-1.3) 12/14/23 05:43
AST 18 U/L (14-36) 12/14/23 05:43
ALT 11 U/L (0-35) 12/14/23 05:43
Alkaline Phosphatase 96 U/L (38-126) 12/14/23 05:43
Most recent labs reviewed.
Micro Results:
12/15/23 08:20 Nasal Screen MRSA (PCR) - Final
Nose Staph aureus MRSA
12/13/23 20:07 Blood Culture - Preliminary
Blood/Venous Coagulase neg. staphylococcus
Gram Stain - Preliminary
12/13/23 20:01 Urine Culture - Final
Urine Escherichia coli
[2023-12-15 15:25] VITALS: BP 118/63
[2023-12-15 17:12] LABS: Glucose - Point of Care 282 mg/dl (70-99)
[2023-12-15] MEDS: XARELTO 2.5 MG PO (17:30)
[2023-12-15] MEDS: NOVOLOG FLEXPEN-LOW RESISTANCE 3 UNITS SC (17:31)
[2023-12-15 20:00] VITALS: BP 158/68
[2023-12-15] MEDS: OMNICEF 300 MG PO (20:17)
[2023-12-15] MEDS: PEPCID 20 MG PO (21:34)
[2023-12-15] MEDS: LIPITOR 10 MG PO (21:34)
[2023-12-15] MEDS: PAMELOR 50 MG PO (21:34)
[2023-12-15] MEDS: ZETIA 10 MG PO (21:34)
[2023-12-15 21:35] LABS: Glucose - Point of Care 107 mg/dl (70-99)
[2023-12-15] MEDS: NEURONTIN 200 MG PO (21:35)
[2023-12-15] MEDS: LANTUS 0.14 UNITS SC (23:37)
[2023-12-15 23:40] VITALS: BP 127/71
[2023-12-16 04:03] VITALS: BP 139/57
[2023-12-16 06:00] VITALS: BMI 39.1
[2023-12-16 07:15] VITALS: BP 156/81
[2023-12-16 07:41] LABS: Hematocrit 32.9 % (37.0-47.0); Hemoglobin 10.8 g/dL (12.0-16.0); Mean Corp Hgb Conc. 32.8 g/dL (33.0-37.0); Mean Corpuscular Hgb 26.2 pg (27.0-31.0); Mean Corpuscular Volume 79.7 fL (81.0-99.0); Mean Platelet Volume 9.6 fL (7.4-10.4); Platelet Count 294 10^3/uL (130-400); Red Blood Cell Count 4.13 10^6/uL (4.20-5.40); Red Cell Dist. Width 15.3 % (11.5-14.5); White Blood Cell Count 9.2 10^3/uL (4.8-10.8)
[2023-12-16 07:46] LABS: Vancomycin Random 13.1 ug/ml
[2023-12-16 07:53] LABS: Glucose - Point of Care 88 mg/dl (70-99)
[2023-12-16 07:57] LABS: Blood Urea Nitrogen 31 mg/dl (7-17); Calcium 8.9 mg/dl (8.4-10.2); Carbon Dioxide 21 mmol/L (22-30); Chloride 112 mmol/L (98-107); Estimated Creatinine Clearance 43 ml/min; Glucose 85 mg/dl (70-99); Potassium 3.5 mmol/L (3.5-5.1); Sodium 144 mmol/L (135-145); eGFR 37.96
[2023-12-16] MEDS: ProAIR HFA INHALER 2 PUFF INH (08:02)
--- NOTE | 2023-12-16 08:03 | PHA.VAN.FU ---
Vancomycin Assessment / Plan
- Assessment
Renal Function: Stable
In the past 24 hrs, patient has been: Afebrile
Concomitant Antimicrobials: CEFDINIR, LEVOFLOXACIN
- Assessment - Therapeutic Drug Monitoring
Random Level: 13.1
- Dosing Plan
Dosing by Level: Re-dose today (1000MG)
- Monitoring Plan
Random Level: 7 IN AM
- Follow Up
Pharmacy will continue to follow.
Vancomycin Follow UP
- -
Patient Age: 68
Patient Sex: Female
Vancomycin Day #: 3
Indication: Pulmonary/Respiratory
Requesting Provider: Dr. Raymundo / Justin
Pertinent Antimicrobial Allergies:
no pertinent antibiotic allergies
Height / Weight:
Height 5 ft 4 in
Actual Weight 103.238 kg
Pertinent Past Medical History: BMI ~39, DM, CKD
- Vital Signs / Lab Results
Temp Pulse Resp BP Pulse Ox
97.9 F 85 18 156/81 99
12/16/23 07:15 12/16/23 07:15 12/16/23 07:15 12/16/23 07:15 12/16/23 07:15
Lab Results - Hematology
12/13/23 12/14/23 12/15/23
20:07 05:43 06:14
WBC 15.4 H 11.5 H 11.4 H
Lab Results - Chemistry
12/13/23 12/14/23 12/15/23
20:07 05:43 06:14
BUN 25 H 30 H 40 H
Creatinine 1.3 H 1.4 H 1.5 H
Estimated Creat Clear 51 46 43
Albumin 3.8 3.1 L
12/16/23
06:50
BUN 31 H
Creatinine 1.5 H
Estimated Creat Clear 43
Albumin
12/13/23 12/13/23 12/14/23
19:45 20:07 00:49
Lactic Acid Cancelled 1.2 Cancelled
12/14/23 12/14/23 12/14/23
05:43 08:49 12:49
Lactic Acid 1.1 Cancelled Cancelled
Microbiology Results
12/13/23 20:07 Blood Culture - Preliminary
Blood/Venous Coagulase neg. staphylococcus
Gram Stain - Preliminary
12/15/23 08:20 Nasal Screen MRSA (PCR) - Final
Nose Staph aureus MRSA
12/13/23 20:01 Urine Culture - Final
Urine Escherichia coli
Therapeutic Drug Monitoring
Random Vancomycin 13.1 ug/ml 12/16/23 06:50
[2023-12-16] MEDS: NOVOLOG FLEXPEN-LOW RESISTANCE SC (08:14)
[2023-12-16] MEDS: LINZESS 290 MCG PO (08:16)
[2023-12-16] MEDS: REFRESH EYE DROPS (PF) 2 DROPS BOTH EYES (08:17)
[2023-12-16] MEDS: DIOVAN 40 MG PO (08:17)
[2023-12-16] MEDS: PROTONIX 40 MG PO (08:17)
[2023-12-16] MEDS: ASPIR LOW (ENTERIC COATED) 81 MG PO (08:17)
[2023-12-16] MEDS: MUCINEX 1200 MG PO (08:17)
[2023-12-16] MEDS: LOPRESSOR 12.5 MG PO (08:17)
[2023-12-16] MEDS: ProAmatine PO (08:18)
[2023-12-16] MEDS: NOVOLOG FLEXPEN SC (08:18)
[2023-12-16] MEDS: OMNICEF 300 MG PO (08:18)
[2023-12-16] MEDS: NEURONTIN 100 MG PO (08:18)
--- NOTE | 2023-12-16 08:33 | W.PN.HOSP.TC ---
Today's Communication/Plan
-
OK for DC today
Assessment / Plan
Assessment / Plan
Sepsis likely 2/2 PNA and UTI
Suspect PNA/ presumed CAP vs aspiration
Acute hypoxic Resp Insufficiency
Add Mucinex, Tessalon Perles
-Chest x-ray with moderate left lower lobe pneumonia, probable right lower lobe atelectasis
-blood culture with coag neg staph
-MRSA swab positive
-ID consult appreciated
-s/p VSE -- regular/thins
-appreciate ID recs - will DC today
Abnormal UA ( straight cath spec) suspect UTI
HX ESBL UTI ( 08/14/20)
HX CAUTI
-final culture E. Coli resistant to fluoroquinolones
-appreciate ID
IDDM2 w Hyperglycemia
Diabetic peripheral Neuropathy
- cont PRESSER HAND insulin regime
Sliding scale, Accu-Chek
A1c 7.7
Benign HTN
- cont all OP Meds
History of orthostasis, also on midodrine. Hold parameters on midodrine
hx of PAD
on xarelto for that
HX CKD 3a - stable
HLD
Chronic conditions
HX XR with possible bone erosion.
Atherosclerosis
Chr anemia
Asthma
Depression
Tq-qnrcff-Onir 6 months ago
Non-Ambulatory at baseline
DVT Px: xarelto
Code: full code
I spent a total of 52 minutes with the patient or on the floor. More than 50% of this time involved counseling and coordination of care.
Anticipated Discharge: Today
Subjective/Interval History
-
Date of Service: December 16, 2023
no new complaints
feeling okay
feels ready to leave the hospital
Objective Data
-
Labs:
Laboratory Results
12/16/23
06:50
WBC Pending
Hgb Pending
Hct Pending
Plt Count Pending
Sodium 144
Potassium 3.5
Chloride 112 H
Carbon Dioxide 21 L
BUN 31 H
Creatinine 1.5 H
Glucose 85
Calcium 8.9
Vital Signs:
Vital Signs
Temp Pulse Resp BP Pulse Ox
97.9 F 80 16 156/81 100
12/16/23 07:15 12/16/23 08:04 12/16/23 08:04 12/16/23 08:18 12/16/23 08:04
I&O
12/15/23 12/16/23 12/17/23
06:59 06:59 06:59
Intake Total 3070 / 3070 1080 / 1080
Balance 3070 / 3070 1080 / 1080
Review of Systems
-
History Source: Patient
All other systems: Reviewed and negative
Physical Exam
-
General: No Apparent Distress
Respiratory: Negative Wheezes
Cardiac: Regular Rhythm and S1/S2
GI: Soft and Nontender
Musculoskeletal: No Edema
Skin: Warm and Dry; Negative Rash
Neuro: AO x 3
Psych: Calm and Confused
Data Reviewed
-
Diagnostic Radiology: Report Reviewed by me
Labs: Labs Reviewed by me
--- NOTE | 2023-12-16 08:44 | W.DS.TRANS ---
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
-
Discharge Instructions:
Discharge Diagnosis/Procedures pneumonia, urinary tract infection
Diet Diabetic, Carb Controlled
Activity As tolerated
Driving Restrictions No driving
Bathing Restrictions None
Other Services PT,OT
Instructions:
Stand-Alone Forms:
Changes to Home Medications: Yes
Discharge Medications:
DC Medications w/original date entered in [employer]
acetaminophen 325 mg tablet 650 mg PO Q4HPRN PRN fever >101/ mild pain 01/08/19
multivitamin with folic acid 400 mcg tablet (Tab-A-Karrie) 1 tab PO HS Supplement 01/08/19
gabapentin 100 mg capsule 100 mg PO BID Pain 01/30/20
atorvastatin 10 mg tablet 10 mg PO HS High cholesterol 02/22/20
melatonin 5 mg tablet 8 mg PO HS Sleep 03/02/20
ezetimibe 10 mg tablet 10 mg PO HS High cholesterol 08/10/20
gabapentin 100 mg capsule 200 mg PO HS Neurological Condition 08/10/20
insulin lispro 100 unit/mL subcutaneous pen (Humalog KwikPen (U-100) Insulin) 10 units SC AC Diabetes 08/10/20
sodium chloride 0.65 % nasal spray aerosol (Saline Nasal) 2 spray NS BID DRY NOSE 08/10/20
aspirin 81 mg tablet,delayed release (Ecotrin Low Strength) 81 mg PO DAILY ##30 08/19/20
acetaminophen 325 mg capsule (Tylenol) 650 mg PO DAILY Pain 01/20/22
albuterol sulfate 90 mcg/actuation aerosol inhaler (ProAir HFA) 2 puff inhalation DAILY Lung/breathing issues 01/20/22
dextran 70-hypromellose eye drops in a dropperette (Artificial Tears (PF) drops in a dropperette) 2 drp ophthalmic (eye) Q8H Eye condition 01/20/22
fexofenadine 180 mg tablet 180 mg PO DAILY Allergies 01/20/22
ipratropium bromide 21 mcg (0.03 %) nasal spray 1 spray intranasal BID CONGESTION/WHEEZING 01/20/22
magnesium hydroxide 400 mg/5 mL oral suspension 30 ml PO PRN PRN No BM 3 days 01/20/22
polyethylene glycol 3350 17 gram oral powder packet 17 grams PO Q12 PRN constipation 01/20/22
valsartan 40 mg tablet (Diovan) 40 mg PO DAILY Blood pressure 01/20/22
ascorbic acid (vitamin C) 1,000 mg tablet 1,000 mg PO DAILY Supplement 03/29/22
diclofenac sodium 1 % topical gel 4 g topical PRN PRN pain 03/29/22
epinephrine 0.3 mg/0.3 mL injection, auto-injector (EpiPen) 0.3 mg IM Q5-15M PRN allergic reaction 03/29/22
mineral oil-hydrophil petrolat topical ointment (Aquaphor topical ointment) 1 applic topical BID Supplement 03/29/22
sodium phosphates 19 gram-7 gram/118 mL enema (Fleet Enema) 118 ml [place] PRN PRN if no results after bisacodyl 03/29/22
albuterol sulfate 90 mcg/actuation aerosol inhaler (ProAir HFA) 2 puff inhalation Q4H PRN BRONCHOSPASM 03/15/23
ammonium lactate 12 % topical cream 1 applic topical HS B/L LEGS 03/15/23
bisacodyl 10 mg rectal suppository (OneLAX Bisacodyl) 10 mg [place] DAILYPRN PRN no MB 24hrs after MOM 03/15/23
brimonidine 0.33 % topical gel with pump 1 applic topical DAILY rosacea 03/15/23
cetirizine 10 mg tablet 10 mg PO HS Allergies 03/15/23
cranberry fruit 450 mg tablet (cranberry) 450 mg PO BID Supplement 03/15/23
docusate sodium 100 mg capsule (Colace) 100 mg PO BID PRN constipation 03/15/23
esomeprazole magnesium 40 mg capsule,delayed release (Nexium) 40 mg PO DAILY Gastrointestinal Issue 03/15/23
famotidine 40 mg tablet 40 mg PO HS 03/15/23
glipizide 5 mg tablet 5 mg PO 1300 Diabetes 03/15/23
glucagon 1 mg injection kit 1 mg IM PRN PRN BS <50 03/15/23
hydrocortisone 1 % topical cream 1 applic topical BID B/L LEGS 03/15/23
hydrocortisone 2.5 % topical ointment 1 applic topical BID PRN ALLERGIC CONTACT DERMATITIS 03/15/23
insulin glargine 100 unit/mL subcutaneous solution (Lantus U-100 Insulin) 28 units SC HS Diabetes 03/15/23
ketoconazole 2 % shampoo 1 applic topical ONCE ON SHOWER DAYS 03/15/23
linaclotide 290 mcg capsule (Linzess) 290 mcg PO DAILY Constipation 03/15/23
loperamide 2 mg capsule 2 mg PO Q4H PRN DIARRHEA 03/15/23
metoprolol tartrate 25 mg tablet 12.5 mg PO BID Blood Pressure 03/15/23
midodrine 2.5 mg tablet 2.5 mg PO BID 03/15/23
nortriptyline 50 mg capsule 50 mg PO HS 03/15/23
rivaroxaban 2.5 mg tablet (Xarelto) 2.5 mg PO QPM Blood Clot Prevention/Tx 03/15/23
cefdinir 300 mg capsule 300 mg PO Q12 #9 caps 12/16/23
diphenhydramine HCl 25 mg capsule (Benadryl) 50 mg (2 x 25 mg) PO DAILY PRN Allergies #0 caps 12/16/23
doxycycline hyclate 100 mg tablet 100 mg PO BID #9 tabs 12/16/23
guaifenesin 600 mg tablet, extended release 12 hr 1,200 mg (2 x 600 mg) PO Q12 #28 tabs 12/16/23
hydroxyzine HCl 50 mg tablet 50 mg PO Q8H PRN itching, anxiety #0 tabs 12/16/23
levofloxacin 750 mg tablet 750 mg PO Q48H #2 tabs 12/16/23
tramadol 50 mg tablet 25 mg (1/2 x 50 mg) PO BID PRN PAIN #10 tabs 12/16/23
Home Medication Changes
Take Levaquin q 48 hours and Doxycycline 100 twice a day through 12/20/23 to complete treatment for pneumonia
Take Cefdinir 300mg twice a day to complete treatment for UTI
Do not take Hydroxyzine while on Levaquin. I have also changed benadryl and Hydroxyzine dosing to only as needed not scheduled (these medications can be sedating).
Stop pepcid in the mornings and only take in evenings. Consider decreasing dose to 20mg.
Pending Results: No
--- NOTE | 2023-12-16 09:31 | W.PN.ID1 ---
Date of Service
Date of Service: December 16, 2023
Today's Communication
-At time of discharge , transition to doxycycline 100mg po bid and levofloxacin 750mg po q48 through 12/20/23
- Continue cefdinir 300 po bid through 12/20/23.
Assessment / Plan
LLL Pneumonia
- acapella
-MRSA screen +
-continue vancomycin (d4) and levofloxacin (d3)
-At time of discharge , transition to doxycycline 100mg po bid and levofloxacin 750mg po q48 through 12/20/23
Symptomatic UTI.
-Ucx E. coli
- Continue cefdinir 300 po bid through 12/20/23.
CoNS bacteremia x1 of 1 set - contaminant
s/p Sepsis
-Leukocytosis resolved
-Fever resolved
CKD
Hx of ESBL
SNF resident
- continue contact isolation
Chief Complaint
-: Pneumonia and UTI
Subjective / Review of Systems
Continues to feel better. Dysuria resolved. Cough not as bad.
Vital Signs / Physical Exam
Vital Signs
Vital Signs
Temp Pulse Resp BP Pulse Ox
97.9 F 80 16 156/81 100
12/16/23 07:15 12/16/23 08:04 12/16/23 08:04 12/16/23 08:18 12/16/23 08:48
Physical Exam
Constitutional: No Acute Distress and Comfortable
Cardiovascular: Regular Rate and S1/S2
Pulmonary: Coarse (left base)
Gastrointestinal: Soft and Non Tender
Genito-Urinary: Negative CVA Tenderness
Neurological: AO x 3
Objective Data
Lab Data
Lab Results
12/16/23 06:50
12/16/23 06:50
Estimated Creat Clear 43 ml/min 12/16/23 06:50
Lactic Acid Cancelled 12/14/23 12:49
Total Bilirubin 0.6 mg/dl (0.2-1.3) 12/14/23 05:43
AST 18 U/L (14-36) 12/14/23 05:43
ALT 11 U/L (0-35) 12/14/23 05:43
Alkaline Phosphatase 96 U/L (38-126) 12/14/23 05:43
Most recent labs reviewed.
Micro Results:
12/13/23 20:07 Blood Culture - Preliminary
Blood/Venous Staphylococcus epidermidis
Gram Stain - Preliminary
12/15/23 08:20 Nasal Screen MRSA (PCR) - Final
Nose Staph aureus MRSA
12/13/23 20:01 Urine Culture - Final
Urine Escherichia coli
[2023-12-16] MEDS: VANCOCIN 200 IV (10:46)
[2023-12-16 11:50] VITALS: BP 144/73
[2023-12-16 12:22] LABS: Glucose - Point of Care 222 mg/dl (70-99)
[2023-12-16] MEDS: NOVOLOG FLEXPEN 10 UNITS SC (13:22)
[2023-12-16] MEDS: NOVOLOG FLEXPEN-LOW RESISTANCE 2 UNITS SC (13:22)
[2023-12-16] MEDS: LEVAQUIN 750 MG PO (13:22)
--- NOTE | 2023-12-16 13:29 | W.DCSUMMARY ---
Discharge Summary
Discharge Data
Date of Admission: 12/13/23
Date of Discharge: 12/16/23
-
Pending Results: No
Hospital Course
Discharging Physician : Dr. Britni Sands
Disposition : NH
Primary care physician : Dr. Nora River
Principal Discharge diagnosis : Pneumonia, Urinary Tract Infection
Hospital Course :
Ms. Richelle Montano is a 68 yo woman with hx IDDM, diabetic neuropathy, senior care resident who presents to the ER with fever up to 102. Triage vitals T up to 103, P 109, RR 26, SpO2 95%. Labs with WBC 15.4, Cr 1.3. UA with inflammation. CXR with
concern for b/l lower lobe pneumonia. Patient has a history of ESBL UTI. Admitted with concern for sepsis 2/2 pneumonia and UTI with ID consulting. She received IV Vanc/Zosyn, sepsis resolved. Urine culture returned positive for E. Coli
resistant to Fluoroquinolones. Breathing stable. Per ID recommendations she was transitioned to Doxycycline 100mg po bid and Levofloxacin 750mg po q48 through 12/20/23 for treatment of pneumonia; and Cefdinir 300 po bid through 12/20/23 for
treatment of UTI.
Time spent on discharge was 32 minutes.
Important imaging findings :
CXR 12/13/23
IMPRESSION:
Moderate left lower lobe pneumonia. New.
Probable right lower lobe atelectasis. Developing pneumonia not excluded.
Procedure findings :
Discharge Plan
-
Patient Disposition: [facility]/SNF
Discharge Diagnosis/Procedures: pneumonia, urinary tract infection
Diet: Diabetic, Carb Controlled
Activity: As tolerated
Driving Restrictions: No driving
Bathing Restrictions: None
Other Services: PT and OT
Referrals:
Nora River CRNP [Family Provider] - in less than 1 week
Additional Discharge Medication Instructions: Take Levaquin q 48 hours and Doxycycline 100 twice a day through 12/20/23 to complete treatment for pneumonia
Take Cefdinir 300mg twice a day to complete treatment for UTI
Do not take Hydroxyzine while on Levaquin. I have also changed benadryl and Hydroxyzine dosing to only as needed not scheduled (these medications can be sedating).
Stop pepcid in the mornings and only take in evenings. Consider decreasing dose to 20mg.
Prescriptions:
New
levofloxacin 750 mg Tablet
750 mg PO Q48H Qty: 2 0RF
Rx Instructions:
first dose morning of 12/17; next and last dose on 12/19
cefdinir 300 mg Capsule
300 mg PO Q12 Qty: 9 0RF
guaifenesin 600 mg Tablet Extended Release 12hr
1,200 mg PO Q12 Qty: 28 0RF
doxycycline hyclate 100 mg tablet
100 mg PO BID Qty: 9 0RF
Continued
acetaminophen 325 MG tablet
650 mg PO Q4HPRN PRN (Reason: fever >101/ mild pain)
multivitamin with folic acid [Tab-A-Karrie] 1 TABLET tablet
1 tab PO HS
gabapentin 100 MG capsule
100 mg PO BID
atorvastatin 10 MG tablet
10 mg PO HS
melatonin 5 MG tablet
8 mg PO HS
gabapentin 100 MG capsule
200 mg PO HS
insulin lispro [Humalog KwikPen Insulin] 100 UNIT/ML insulin pen
10 units SC AC
Patient Comments:
hold if bs <110mg/dl
Rx Instructions:
HOLD BG <110
ezetimibe 10 MG tablet
10 mg PO HS
Saline Nasal 50 SPRAYS/45 ML aerosol,spray
2 spray NS BID
aspirin [Ecotrin Low Strength] 81 MG tablet,delayed release (DR/EC)
81 mg PO DAILY Qty: 30 0RF
fexofenadine 180 mg Tablet
180 mg PO DAILY
valsartan [Diovan] 40 mg Tablet
40 mg PO DAILY
Patient Comments:
not on medication list from [facility].
Artificial Tears (PF) Dropperette
2 drp OPHTHALMIC (EYE) Q8H
magnesium hydroxide 400 mg/5 mL Suspension
30 ml PO PRN PRN (Reason: No BM 3 days)
albuterol sulfate [ProAir HFA] 90 mcg/actuation Hfa Aerosol Inhaler
2 puff INHALATION DAILY
ipratropium bromide 21 mcg (0.03 %) Edelstein,Non-Aerosol
1 spray INTRANASAL BID
acetaminophen [Tylenol] 325 mg Capsule
650 mg PO DAILY
polyethylene glycol 3350 17 GRAMS powder in packet
17 grams PO Q12 PRN (Reason: constipation)
ascorbic acid (vitamin C) 1,000 mg Tablet
1,000 mg PO DAILY
Aquaphor Ointment
1 applic TOPICAL BID
Rx Instructions:
For dry skin
Fleet Enema 19-7 gram/118 mL Enema
118 ml [place] PRN PRN (Reason: if no results after bisacodyl)
Rx Instructions:
If no bowel movement in 24 hours after bisacodyl
epinephrine [EpiPen] 0.3 mg/0.3 mL Auto-Injector
0.3 mg IM Q5-15M PRN (Reason: allergic reaction)
diclofenac sodium 1 % Gel
4 g TOPICAL PRN PRN (Reason: pain)
glucagon 1 mg Kit
1 mg IM PRN PRN (Reason: BS <50)
ketoconazole 2 % Shampoo
1 applic TOPICAL ONCE
loperamide 2 mg Capsule
2 mg PO Q4H PRN (Reason: DIARRHEA)
cetirizine 10 mg Tablet
10 mg PO HS
famotidine 40 mg Tablet
40 mg PO HS
hydrocortisone 1 % Cream
1 applic TOPICAL BID
esomeprazole magnesium [Nexium] 40 mg Capsule,Delayed Release(Dr/Ec)
40 mg PO DAILY
docusate sodium [Colace] 100 mg Capsule
100 mg PO BID PRN (Reason: constipation)
ammonium lactate 12 % Cream
1 applic TOPICAL HS
midodrine 2.5 mg Tablet
2.5 mg PO BID
Rx Instructions:
HOLD BP >110/60
albuterol sulfate [ProAir HFA] 90 mcg/actuation Hfa Aerosol Inhaler
2 puff INHALATION Q4H PRN (Reason: BRONCHOSPASM)
hydrocortisone 2.5 % Ointment
1 applic TOPICAL BID PRN (Reason: ALLERGIC CONTACT DERMATITIS)
glipizide 5 mg Tablet
5 mg PO 1300
nortriptyline 50 mg Capsule
50 mg PO HS
metoprolol tartrate 25 mg Tablet
12.5 mg PO BID
Rx Instructions:
HOLD SBP <110, HR <60
cranberry 450 mg Tablet
450 mg PO BID
Linzess 290 mcg Capsule
290 mcg PO DAILY
Xarelto 2.5 mg Tablet
2.5 mg PO QPM
brimonidine 0.33 % Gel With Pump
1 applic TOPICAL DAILY
insulin glargine [Lantus U-100 Insulin] 1,000 UNITS/10 ML solution
28 units SC HS
Patient Comments:
Took half dose 01/20
bisacodyl [OneLAX Bisacodyl] 10 MG suppository
10 mg [place] DAILYPRN PRN (Reason: no MB 24hrs after MOM)
Rx Instructions:
after 24h no BM
tramadol 50 mg Tablet
25 mg PO BID PRN (Reason: PAIN) Qty: 10 0RF
Changed
hydroxyzine HCl 50 mg Tablet
50 mg PO Q8H PRN (Reason: itching, anxiety) Qty: 0 0RF
diphenhydramine HCl [Benadryl] 25 mg Capsule
50 mg PO DAILY PRN (Reason: Allergies) Qty: 0 0RF
Discontinued
famotidine 20 MG tablet
20 mg PO DAILY
Discharge Orders:
Discharge Patient (As Directed); Ordered 12/16/23
Ordered By: Britni Sands
Discharge Date and Time
Print Language: QATARI
--- NOTE | 2023-12-16 15:54 | CM ---
Pt return dc to [facility]
the facility fax is down so paperwork was requested to be sent in dc packet with pt.
Report # [phone] ask for 3rd floor
IMM was previously completed and on chart; med necessity was completed and provided.
== END 2023-12-16 14:59 | DRG 871 ==
LOC: 2 NORTH 22:52
PROVIDERS: Internal Medicine; Nurse Practitioner; ADMITTING PHYSICIAN Internal Medicine; ATTENDING PHYSICIAN Student in an Organized Health Care Education/Training Program; EMERGENCY PHYSICIAN Emergency Medicine; FAMILY PHYSICIAN Nurse Practitioner; OTHER PHYSICIAN Student in an Organized Health Care Education/Training Program
DX: A41.9 Sepsis, unspecified organism (principal); J69.0 Pneumonitis due to inhalation of food and vomit; N39.0 Urinary tract infection, site not specified; J98.11 Atelectasis; E66.01 Morbid (severe) obesity due to excess calories; Z68.39 Body mass index [BMI] 39.0-39.9, adult; I10 Essential (primary) hypertension; R09.02 Hypoxemia; R06.89 Other abnormalities of breathing; E11.9 Type 2 diabetes mellitus without complications; N18.31 Chronic kidney disease, stage 3a; Z11.52 Encounter for screening for COVID-19
CPT/HCPCS: 71046; 74230; 80048; 80053; 80202; 81003; 81015; 82962; 83036; 83605; 84145; 85025; 85027; 87040; 87077; 87086; 87150; 87186; 87205; 87641; 87811; 92610; 92611; 93005; 94640; 96365; 96375; 97163; 99285

== ENCOUNTER → 2024-01-17 13:21 | Outpatient (REF) | payer MEDICARE, OTHER, SELFPAY | LOC: RAD 13:21 | PROVIDERS: ATTENDING PHYSICIAN Surgery Vascular Surgery | DX: I77.9 Disorder of arteries and arterioles, unspecified (principal) | CPT/HCPCS: 93922; 93925 ==

== ENCOUNTER → 2024-06-11 13:21 | Outpatient (REF) | payer MEDICARE, OTHER, SELFPAY | LOC: RAD 13:21 | PROVIDERS: ATTENDING PHYSICIAN Registered Nurse; FAMILY PHYSICIAN Nurse Practitioner | DX: I77.9 Disorder of arteries and arterioles, unspecified (principal) | CPT/HCPCS: 93922; 93925 ==

== ENCOUNTER → 2024-12-19 13:11 | Outpatient (REF) | payer MEDICARE, OTHER, SELFPAY | LOC: DHVS 13:11 | PROVIDERS: ATTENDING PHYSICIAN Registered Nurse | DX: I77.9 Disorder of arteries and arterioles, unspecified (principal) | CPT/HCPCS: 93922; 93925 ==

== ENCOUNTER 2024-12-31 09:23 | Day surgery (SDC) | payer MEDICARE, OTHER, SELFPAY ==
[2024-12-31] VITALS (12 sets, daily range): BP systolic 111–158; BP diastolic 43–85; BMI 39.5
--- NOTE | 2024-12-31 10:00 | W.SUR.PREOP ---
Pre-Operative Surgical Note
-
I have examined this patient prior to the performance of the scheduled procedure.
The patient's condition is unchanged from the time of the current History and
Physical and the patient is able to undergo the scheduled procedure.
[2024-12-31 10:24] LABS: Hematocrit 40.0 % (37.0-47.0); Hemoglobin 12.5 g/dL (12.0-16.0); Mean Corp Hgb Conc. 31.3 g/dL (33.0-37.0); Mean Corpuscular Volume 85.3 fL (81.0-99.0); Platelet Count 278 10^3/uL (130-400); Red Cell Dist. Width 15.6 % (11.5-14.5)
[2024-12-31 10:40] LABS: APTT 32.4 Sec (23.4-35.0)
[2024-12-31 10:46] LABS: Blood Urea Nitrogen 28 mg/dl (7-17); Calcium 9.4 mg/dl (8.4-10.2); Carbon Dioxide 24 mmol/L (22-30); Chloride 106 mmol/L (98-107); Estimated Creatinine Clearance 56 ml/min; Glucose 276 mg/dl (70-99); Potassium 4.4 mmol/L (3.5-5.1); Sodium 140 mmol/L (135-145); eGFR 54.73
[2024-12-31 11:01] LABS: Glucose - Point of Care 256 mg/dl (70-99)
[2024-12-31] MEDS: BENADRYL 50 MG IV (11:46)
[2024-12-31] MEDS: SOLU-CORTEF 200 MG IV (11:46)
[2024-12-31] MEDS: NSS 500 IV ×2 (11:51→11:52)
--- NOTE | 2024-12-31 12:06 | PTCARENOTE ---
Blood Sugar 276. anesthesia aware
--- NOTE | 2024-12-31 13:44 | W.SUR.POST ---
Surgical Immediate Post Op
Note
Pre Op Diagnosis: PAD
Post Op Diagnosis: PAD
Procedure Performed: LLE angiography via right [employer] access. SFA DCB angioplasty 4 x 80 mm.
Primary Surgeon: Bi Garcia III, MD
Secondary Surgeons: You Muller MD
Anesthesia: see anesthesia report
Estimated Blood Loss: 2 cc
Fluids: see anesthesia report
Drains/Shunts: none
Specimens/Cultures: none
Doppler/Duplex/Angio (Y/N): Angiogram
Complications: none
Operative Findings: Distal SFA with multiple stenotic segements. DCB angioplasty 4 x 80 mm.
[2024-12-31 14:08] LABS: Glucose - Point of Care 192 mg/dl (70-99)
[2024-12-31] MEDS: ASPIRIN 325 MG PO (14:33)
--- NOTE | 2024-12-31 15:49 | OR.RPT ---
Operative Report
Operative Report
Date of Operation: 12/31/2024
Pre Op Diagnosis:
1. Right lower extremity common femoral artery to below-knee popliteal artery PTFE bypass with possible stenosis on surveillance duplex
2. Left lower extremity superficial femoral artery to posterior tibial artery bypass with possible stenosis on surveillance duplex
3. Nickel allergy
Post Op Diagnosis:
1. Right lower extremity common femoral artery to below-knee popliteal artery PTFE bypass with possible stenosis on surveillance duplex
2. Left lower extremity superficial femoral artery to posterior tibial artery bypass with possible stenosis on surveillance duplex
3. Nickel allergy
Procedure:
1. Drug-coated balloon angioplasty of left superficial femoral artery stenosis (4 mm x 80 mm Lutonix)
2. Diagnostic aortobiiliac arteriogram
3. Diagnostic BILATERAL lower extremity arteriograms
4. Ultrasound-guided percutaneous access to the right common femoral artery
Surgeon: Bi Garcia III, MD
Childhood Development Teacher: You Muller MD PGY-6
Anesthesia: Sedation with local
Fluoroscopy:
20.5 min
263 mGy
57.32 gy.cm2
Complications: None
Estimated Blood Loss: Less than 20 cc
History and Indications for Procedure: 69-year-old female with known bilateral lower extremity arterial disease. She has previously undergone bilateral lower extremity bypasses and was found to have possible stenoses bilaterally on surveillance
duplex imaging.
Procedure in Detail: Richelle Montano was correctly identified and placed supine on the operating table. After adequate induction of anesthesia the bilateral groins were prepped and draped in the usual sterile fashion. A timeout was performed with the
nursing and anesthesia staff confirming the patient's identity as well as the nature and laterality of the procedure.
The right common femoral artery was identified under ultrasound guidance. The origin of the bypass was identified in the augustine common femoral artery proximal to this was identified. The artery was patent. The superior and inferior aspects of the
femoral head were identified with radiographic guidance and marked at the skin level. The proposed puncture site was infiltrated with local anesthesia. Under ultrasound guidance we accessed the right common femoral artery with a micropuncture needle
and upsized to a 5 Fr sheath over a [employer] wire.
A runoff arteriogram of the right lower extremity was performed initially which demonstrated the following:
RIGHT LOWER EXTREMITY:
Common femoral artery: Patent with mild stenosis identified
Profunda femoral artery: Patent
Superficial femoral artery: Patent proximal and mid segments. Occluded distally.
PTFE DRAWING HAND-BK POP Bypass: Patent. Proximal anastomosis patent with no significant stenosis identified. Distal anastomosis to a small diameter below-knee popliteal artery is patent with no significant stenosis identified.
Tibial artery runoff was demonstrated via the anterior tibial artery and posterior tibial artery. Both of these arteries were diffusely small diameter throughout. Flow into the foot was identified.
The wire and a Shepherds hook flush catheter were then advanced into the distal abdominal aorta and a diagnostic aorto-biiliac arteriogram was performed:
AORTO-ILIAC ARTERIOGRAM:
Aorta: Patent with no significant stenosis identified
Right common iliac artery: Patent with no significant stenosis identified
Right external iliac artery: Patent with no significant stenosis identified
Left common iliac artery: Patent with no significant stenosis identified
Left external iliac artery: Patent with no significant stenosis identified
Under roadmap guidance using a Glidewire and the Shepherds hook catheter we selected the left common iliac artery and then the external iliac artery. A catheter was tracked up and over the aortic bifurcation and placed in the distal external iliac
artery. A diagnostic left lower extremity arteriogram was then performed which demonstrated the following:
LEFT LOWER EXTREMITY:
Common femoral artery: Patent with no significant stenosis identified
Profunda femoral artery: Patent
Superficial femoral artery: Patent. Small diameter. Distal SFA, proximal to the bypass, with segmental high-grade stenosis identified.
Popliteal artery: Occluded
SFA-PT Bypass: Patent with sluggish flow. Proximal anastomosis patent with no stenosis identified. Distal anastomosis to the posterior tibial artery is patent
Anterior tibial artery and peroneal artery appear to be occluded
ENDOVASCULAR INTERVENTION: Systemic heparin was administered. Exchanged out for a 5 Fr 45 cm sheath over a [employer] wire. Selected the superficial femoral artery under roadmap guidance. The distal superficial femoral artery stenosis was crossed with a
[employer] and Glidewire. The wire and catheter were advanced into the bypass and subtraction angio confirmed proper position in the true lumen. Exchanged out for a [employer]q wire. A 4 mm x 80 mm Lutonix drug-coated angioplasty balloon was then brought
into position under roadmap guidance to treat the distal superficial femoral artery stenosis. The balloon was positioned in the desired location and inflated to nominal pressure. The balloon was kept in place for 3-minute inflation at nominal
pressure before slowly deflating and removing over the wire. Subsequent arteriogram demonstrated an excellent technical result with a widely patent superficial femoral artery and no significant residual stenosis or filling defects identified. I
also performed focused magnification views of the distal anastomosis to the posterior tibial artery. The distal anastomosis was widely patent with no significant stenosis identified. Runoff was identified through the posterior tibial artery and
into the foot.
Satisfied with this result we concluded the procedure. The sheath tip was pulled back into the right external iliac artery. Protamine was administered. The sheath was secured in place with the plan to pull it in the recovery room.
The patient tolerated the procedure well and was taken to the recovery area in stable condition.
Attestation: I was present and responsible for the entire procedure.
Signed:
Bi Garcia III, MD
Vascular Surgery
[facility]
[2024-12-31 16:50] LABS: Glucose - Point of Care 182 mg/dl (70-99)
[2024-12-31] MEDS: NOVOLOG FLEXPEN-MODERATE RESISTANCE 1 UNITS SC (17:02)
[2024-12-31] MEDS: NSS 1000 IV (17:03)
[2024-12-31 21:07] LABS: Glucose - Point of Care 251 mg/dl (70-99)
[2025-01-01 03:10] VITALS: BP 127/62
[2025-01-01 06:52] LABS: INR 0.99; PT 13.6 Sec (11.4-14.6)
[2025-01-01 07:00] VITALS: BP 125/65
[2025-01-01 07:30] LABS: Glucose - Point of Care 159 mg/dl (70-99)
--- NOTE | 2025-01-01 07:56 | W.PN.VS ---
Today's Communication / Plan
-
See below.
Assessment/Plan
-
Assessment: 69 year old female POD#1 Drug-coated balloon angioplasty of left superficial femoral artery stenosis (4 mm x 80 mm Lutonix). Diagnostic aortobiiliac arteriogram. Diagnostic BILATERAL lower extremity arteriograms
Plan:
Can remove Tegaderm later this afternoon
Ok for discharge
Follow up placed in dc instructions
Subjective Data
-
Date of Service: January 01, 2025
Patient seen and examined at bedside, offers no complaints. Denies nausea, vomiting, fever, and chills. Denies pain at right groin. Reports readiness and eagerness for dc back to longterm.
Objective Data
-
Vital Signs
Temp Pulse Resp BP Pulse Ox
97.5 F 81 18 127/62 100
01/01/25 03:10 01/01/25 03:10 01/01/25 03:10 01/01/25 03:10 01/01/25 03:10
Intake and Output
12/31/24 01/01/25 01/02/25
06:59 06:59 06:59
Intake Total 480 / 480
Output Total 700 / 700
Balance -220 / -220
Intake:
Oral fluids 480 / 480
Output:
Urine, Voided 700 / 700
Lab Results
12/31/24 09:47
12/31/24 09:47
Calcium 9.4 mg/dl (8.4-10.2) 12/31/24 09:47
Physical Exam
-
No apparent distress, resting in bed comfortably
No tachycardia
No dyspnea
ABD rotund, non-tender, non distended
Right groin Tegaderm CDI, no evidence of hematoma or edema, all surrounding compartments soft
BL DP by doppler
--- NOTE | 2025-01-01 08:12 | W.DS.TRANS ---
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
-
Discharge Instructions:
Discharge Diagnosis/Procedures LLE angiography via right GIS TECHNICIAN access. SFA Drug
Coated Balloon angioplasty.
Diet As tolerated
Activity No strenuous activity
Driving Restrictions No driving for 24 hours
Bathing Restrictions OK to Shower
Others Tests Ultrasound appt: 01/24 @ 2pm
Instructions:
Stand-Alone Forms: Vascular Surg Discharge Instr
Changes to Home Medications: No
Discharge Medications:
DC Medications w/original date entered in [employer]
acetaminophen 325 mg tablet 650 mg PO Q4HPRN PRN fever >101/ mild pain 01/08/19
multivitamin with folic acid 400 mcg tablet (Tab-A-Karrie) 1 tab PO HS Supplement 01/08/19
gabapentin 100 mg capsule 100 mg PO BID Pain 01/30/20
melatonin 5 mg tablet 8 mg PO HS Sleep 03/02/20
ezetimibe 10 mg tablet 10 mg PO HS High cholesterol 08/10/20
gabapentin 100 mg capsule 200 mg PO HS Neurological Condition 08/10/20
insulin lispro 100 unit/mL subcutaneous pen (Humalog KwikPen (U-100) Insulin) 12 units SC AC Diabetes 08/10/20
dextran 70-hypromellose eye drops in a dropperette (Artificial Tears (PF) drops in a dropperette) 2 drp ophthalmic (eye) Q8H Eye condition 01/20/22
ipratropium bromide 21 mcg (0.03 %) nasal spray 1 spray intranasal BID CONGESTION/WHEEZING 01/20/22
magnesium hydroxide 400 mg/5 mL oral suspension 30 ml PO PRN PRN No BM 3 days 01/20/22
polyethylene glycol 3350 17 gram oral powder packet 17 grams PO Q12 PRN constipation 01/20/22
valsartan 40 mg tablet (Diovan) 40 mg PO DAILY Blood pressure 01/20/22
epinephrine 0.3 mg/0.3 mL injection, auto-injector (EpiPen) 0.3 mg IM Q5-15M PRN allergic reaction 03/29/22
sodium phosphates 19 gram-7 gram/118 mL enema (Fleet Enema) 118 ml SC PRN PRN if no results after bisacodyl 03/29/22
bisacodyl 10 mg rectal suppository (OneLAX Bisacodyl) 10 mg SC DAILYPRN PRN no MB 24hrs after MOM 03/15/23
brimonidine 0.33 % topical gel with pump 1 applic topical DAILY rosacea 03/15/23
cetirizine 10 mg tablet 10 mg PO HS Allergies 03/15/23
cranberry fruit 450 mg tablet (cranberry) 450 mg PO BID Supplement 03/15/23
docusate sodium 100 mg capsule (Colace) 100 mg PO Q12H PRN constipation 03/15/23
esomeprazole magnesium 40 mg capsule,delayed release (Nexium) 40 mg PO DAILY Gastrointestinal Issue 03/15/23
famotidine 40 mg tablet 40 mg PO HS 03/15/23
hydrocortisone 1 % topical cream 1 applic topical BID B/L LEGS 03/15/23
hydrocortisone 2.5 % topical ointment 1 applic topical BID PRN ALLERGIC CONTACT DERMATITIS 03/15/23
ketoconazole 2 % shampoo 1 applic topical ONCE ON SHOWER DAYS 03/15/23
loperamide 2 mg capsule 2 mg PO Q4H PRN DIARRHEA 03/15/23
metoprolol tartrate 25 mg tablet 12.5 mg PO BID Blood Pressure 03/15/23
midodrine 2.5 mg tablet 2.5 mg PO BID 03/15/23
rivaroxaban 2.5 mg tablet (Xarelto) 2.5 mg PO QPM Blood Clot Prevention/Tx 03/15/23
diphenhydramine HCl 25 mg capsule (Benadryl) 50 mg (2 x 25 mg) PO DAILY PRN Allergies #0 caps 12/16/23
guaifenesin 600 mg tablet, extended release 12 hr 1,200 mg (2 x 600 mg) PO Q12 #28 tabs 12/16/23
tramadol 50 mg tablet 25 mg (1/2 x 50 mg) PO BID PRN PAIN #10 tabs 12/16/23
albuterol sulfate 90 mcg/actuation aerosol inhaler 2 puff inhalation DAILY shortness of breath 12/27/24
albuterol sulfate 90 mcg/actuation aerosol inhaler 2 puff inhalation Q4H PRN bronchospasm 12/27/24
ammonium lactate 12 % lotion 1 applic topical HS 12/27/24
ascorbic acid (vitamin C) 1,000 mg tablet (Vitamin C) 1,000 mg PO DAILY 12/27/24
aspirin 81 mg tablet,delayed release (Ecotrin Low Strength) 81 mg PO DAILY clot prevention 12/27/24
diclofenac sodium 1 % topical gel 4 g topical Q12H PRN moderate to severe knee pain 12/27/24
diphenhydramine HCl 25 mg tablet 25 mg PO Q12H PRN allergy symptoms 12/27/24
glucagon HCl 1 mg solution for injection (Glucagon (HCl) Emergency Kit) 1 mg IM DIRECTED PRN hypoglycemia 12/27/24
insulin glargine 100 unit/mL (3 mL) subcutaneous pen (Basaglar KwikPen U-100 Insulin) 25 unit SC HS 12/27/24
lidocaine 5 % topical patch 1 patch topical Q12H PRN to left knee for pain 12/27/24
linaclotide 145 mcg capsule (Linzess) 145 mcg PO BID Constipation 12/27/24
linagliptin 5 mg tablet (Tradjenta) 5 mg PO DAILY 12/27/24
mineral oil-hydrophil petrolat topical ointment (DermaPhor topical ointment) 1 applic topical TID 12/27/24
niacin 500 mg tablet 1,000 mg PO HS 12/27/24
nortriptyline 10 mg capsule 10 mg PO HS 12/27/24
olopatadine 0.1 % eye drops (Pataday Twice Daily Relief) 1 drp ophthalmic (eye) BID 12/27/24
ondansetron 4 mg disintegrating tablet 4 mg PO Q8H PRN nausea, vomiting 12/27/24
sennosides 8.6 mg tablet (senna) 17.2 mg PO BID 12/27/24
sodium chloride 0.65 % nasal spray aerosol (Saline Nasal) 2 spray intranasal DAILY 12/27/24
sucralfate 1 gram tablet (Carafate) 1 g PO BID 12/27/24
Home Medication Changes
Pending Results: No
--- NOTE | 2025-01-01 09:24 | CM ---
CM following re: discharge planning.
Reviewed pt's chart, met with pt.
Pt is a 69 year old female, admitted with SDC status and primary dx of POD#1 Drug-coated balloon angioplasty of left superficial femoral artery stenosis.
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 Pt reports she is w/c bound and requires 2 people to assist with transfer.
Discharge order noted. Pt is aware, expressed her agreement and pt requested to return back to [facility] for a half-way care.
A referral to [facility] made, spoke to liamara Khoury, pt is accepted for admission today.
to arrange ambulance transport BLS, draft roller picker time 10:30 a.m. PMNC completed and left with .
[facility] nursing report: [phone]
Discharge instructions fax: [phone]
D/C plan: return back to [facility] for a LTC.
[2025-01-01] MEDS: LOW STRENGTH ASPIRIN 81 MG PO (09:38)
[2025-01-01] MEDS: NOVOLOG FLEXPEN-MODERATE RESISTANCE 1 UNITS SC (09:39)
== END 2025-01-01 10:53 | disposition home or self-care (01) ==
LOC: CATH 09:23
PROVIDERS: ATTENDING PHYSICIAN Surgery Vascular Surgery; PRIMARYCARE PHYSICIAN Family Medicine Adult Medicine
DX: I70.222 Atherosclerosis of native arteries of extremities with rest pain, left leg (principal); E11.51 Type 2 diabetes mellitus with diabetic peripheral angiopathy without gangrene; Z91.048 Other nonmedicinal substance allergy status; Z79.4 Long term (current) use of insulin; I10 Essential (primary) hypertension; Z79.899 Other long term (current) drug therapy; Z79.01 Long term (current) use of anticoagulants; Z79.82 Long term (current) use of aspirin; K21.9 Gastro-esophageal reflux disease without esophagitis; F32.A Depression, unspecified; E66.9 Obesity, unspecified; Z68.35 Body mass index [BMI] 35.0-35.9, adult
CPT/HCPCS: 37224; 36246; 75625; 75716; 80048; 82962; 85027; 85610; 85730; 93005; C1769; C1894; C2623; Q9967

== ENCOUNTER → 2025-02-12 13:56 | Outpatient (REF) | payer MEDICARE, OTHER, SELFPAY | LOC: RAD 13:56 | PROVIDERS: ATTENDING PHYSICIAN Surgery Vascular Surgery; FAMILY PHYSICIAN Internal Medicine | DX: I77.9 Disorder of arteries and arterioles, unspecified (principal) | CPT/HCPCS: 93922; 93925 ==